=== PATIENT | male | born 1980 | race Asian ===

== ENCOUNTER 2017-11-18 11:17 | Emergency (ER) | payer MEDICAID, OTHER ==
[~2017-11-18] VITALS: Ht 175.3 cm; Wt 90.0 kg
[~2017-11-18 11:17] MED LIST: OLAN5TAB2 PO
[2017-11-18] MEDS ORDERED: LURA20TA PO (11:31)
[2017-11-18 11:40] LABS: BASOPHILS % (AUTO) 0.8 % (0.0-2.0); EOSINOPHILS % (AUTO) 4.4 % (1.0-6.0); HEMATOCRIT 49.2 % (41-53); HEMOGLOBIN 16.8 g/dL (13.5-17.5); LYMPHOCYTES # (AUTO) 1.7 K/uL (1.0-4.8); LYMPHOCYTES % (AUTO) 34.4 % (22.0-44.0); MEAN CORPUSCULAR HEMOGLOBIN 32.5 pg (26.0-34.0); MEAN CORPUSCULAR HGB CONC 34.1 G/dL (31.0-37.0); MEAN CORPUSCULAR VOLUME 95 fL (80-100); MONOCYTES # (AUTO) 0.4 K/uL (0.1-1.0); MONOCYTES % (AUTO) 8.7 % (2.0-9.0); NEUTROPHILS # (AUTO) 2.6 K/uL (1.8-7.7); NEUTROPHILS % (AUTO) 51.7 % (40.0-70.0); PLATELET COUNT (AUTO) 207 K/uL (150-450); RED BLOOD CELL COUNT(AUTO) 5.16 MIL/uL (4.50-5.90); RED CELL DISTRIBUTION WIDTH 12.5 % (11.5-14.5)
[2017-11-18 11:48] LABS: AMPHET/METH SCREEN,URINE POSITIVE (NEGATIVE); BARBITURATE SCREEN, URINE NEGATIVE (NEGATIVE); BENZODIAZEPINES SCREEN,URINE NEGATIVE (NEGATIVE); CANNABINOID SCREEN,URINE POSITIVE (NEGATIVE); COCAINE SCREEN,URINE NEGATIVE (NEGATIVE); METHADONE SCREEN, URINE NEGATIVE (NEGATIVE); OPIATE SCREEN,URINE NEGATIVE (NEGATIVE)
[2017-11-18 11:49] LABS: ANION GAP 10 mmol/L (8-16); CALCIUM, TOTAL 8.7 mg/dL (8.8-10.5); CARBON DIOXIDE 28 mmol/L (22-29); CHLORIDE 105 mmol/L (98-107); CREATININE 0.95 mg/dL (0.60-1.30); GLOMERULAR FILTR. RATE CALC > 60 mL/min (>60); GLUCOSE,RANDOM 124 mg/dL (70-110); POTASSIUM 3.9 mmol/L (3.5-5.1); SODIUM SERUM 143 mmol/L (136-145); UREA NITROGEN, BLOOD 5 mg/dL (7-18)
[2017-11-18 11:49] LABS: PHENCYCLIDINE SCREEN,URINE NEGATIVE (NEGATIVE)
[2017-11-18 11:59] LABS: ALANINE AMINOTRANSFERASE 38 U/L (12-78); ALBUMIN 3.9 g/dL (3.4-5.0); ALKALINE PHOSPHATASE 64 U/L (46-116); ASPARTATE AMINOTRANSFERASE 22 U/L (15-37); BILIRUBIN,TOTAL 0.7 mg/dL (0.1-1.0); TOTAL PROTEIN, SERUM 7.3 g/dL (6.4-8.2)
[2017-11-18 13:29] VITALS: BP 118/88
== END 2017-11-18 14:39 | disposition home or self-care (01) ==
LOC: EMS 11:19
DX: T74.31XA Adult psychological abuse, confirmed, initial encounter (principal); F20.9 Schizophrenia, unspecified; Z79.899 Other long term (current) drug therapy
CPT/HCPCS: 36415; 80053; 80307; 85025; 99285; G0480

== ENCOUNTER 2020-08-03 13:05 | Inpatient (IN) | payer MEDICAID, OTHER ==
[~2020-08-03] VITALS: Ht 177.8 cm; Wt 88.9 kg
[~2020-08-03 13:05] MED LIST changes: +LURA20TA PO
[2020-08-03 14:25] LABS: BASOPHILS % (AUTO) 0.5 % (0.0-2.0); EOSINOPHILS % (AUTO) 2.9 % (1.0-6.0); HEMATOCRIT 44.9 % (41-53); HEMOGLOBIN 15.7 g/dL (13.5-17.5); LYMPHOCYTES # (AUTO) 1.1 K/uL (1.0-4.8); LYMPHOCYTES % (AUTO) 17.4 % (22.0-44.0); MEAN CORPUSCULAR HEMOGLOBIN 33.4 pg (26.0-34.0); MEAN CORPUSCULAR HGB CONC 34.9 G/dL (31.0-37.0); MEAN CORPUSCULAR VOLUME 96 fL (80-100); MONOCYTES # (AUTO) 0.6 K/uL (0.1-1.0); MONOCYTES % (AUTO) 9.6 % (2.0-9.0); NEUTROPHILS # (AUTO) 4.5 K/uL (1.8-7.7); NEUTROPHILS % (AUTO) 69.6 % (40.0-70.0); PLATELET COUNT (AUTO) 204 K/uL (150-450); RED BLOOD CELL COUNT(AUTO) 4.69 MIL/uL (4.50-5.90)
[2020-08-03 14:33] LABS: ANION GAP 8 mmol/L (8-16); CALCIUM, TOTAL 8.5 mg/dL (8.8-10.5); CARBON DIOXIDE 28 mmol/L (22-29); CHLORIDE 106 mmol/L (98-107); CREATININE 1.17 mg/dL (0.60-1.30); GLOMERULAR FILTR. RATE CALC > 60 mL/min (>60); GLUCOSE,RANDOM 91 mg/dL (70-110); POTASSIUM 4.3 mmol/L (3.5-5.1); SODIUM SERUM 142 mmol/L (136-145); UREA NITROGEN, BLOOD 17 mg/dL (7-18)
[2020-08-03 14:38] LABS: ALANINE AMINOTRANSFERASE 38 U/L (12-78); ALBUMIN 4.2 g/dL (3.4-5.0); ALKALINE PHOSPHATASE 61 U/L (46-116); ASPARTATE AMINOTRANSFERASE 35 U/L (15-37); BILIRUBIN,TOTAL 0.7 mg/dL (0.1-1.0); TOTAL PROTEIN, SERUM 7.8 g/dL (6.4-8.2)
[2020-08-03] MEDS ORDERED: MINERAL OIL/PETROLATUM 120 GM CREAM TP ONE (16:45)
[2020-08-03 17:55] LABS: COVID AG,FIA SOURCE NASOPHARYNGEAL
[2020-08-04] MEDS ORDERED: INFLUENZA VIRUS VACCINE QVS 2020-21 (6MO+)/PF 60 MCG/0.5 ML SYRINGE IM ONE (03:30)
[2020-08-04 03:33] VITALS: BP 126/87
[2020-08-04 08:09] VITALS: BP 105/60
[2020-08-04 16:13] VITALS: BP 116/74
[2020-08-04] MEDS: LORazepam 2 MG TABLET PO PRN (17:40)
[2020-08-04] MEDS: HALOPERIDOL 5 MG TABLET PO PRN (17:40)
[2020-08-04] MEDS: ZOLPIDEM TARTRATE 10 MG TABLET PO PRN (20:42)
[2020-08-04] MEDS: OLANZapine 5 MG RAPDIS TABLET PO SCH (20:43)
[2020-08-05 06:02] VITALS: BP 136/92
[2020-08-05 08:13] VITALS: BP 130/74
[2020-08-05] MEDS: HYDROCORTISONE 1% 30 GM CREAM TP SCH ×3 (08:20→17:22)
[2020-08-05 16:15] VITALS: BP 124/77
[2020-08-05] MEDS: HALOPERIDOL 5 MG TABLET PO PRN (17:23)
[2020-08-05] MEDS: LORazepam 2 MG TABLET PO PRN (17:23)
[2020-08-05] MEDS: OLANZapine 5 MG RAPDIS TABLET PO SCH (21:31)
[2020-08-06 00:07] VITALS: BP 125/79
[2020-08-06] MEDS: LORazepam 2 MG TABLET PO PRN (00:09)
[2020-08-06] MEDS: ZOLPIDEM TARTRATE 10 MG TABLET PO PRN (00:09)
[2020-08-06] MEDS: HYDROCORTISONE 1% 30 GM CREAM TP SCH ×3 (08:56→17:00)
[2020-08-06 09:19] VITALS: BP 122/78
[2020-08-06 17:06] VITALS: BP 127/64
[2020-08-06] MEDS: OLANZapine 5 MG RAPDIS TABLET PO SCH (20:46)
[2020-08-07] MEDS: LORazepam 2 MG TABLET PO PRN ×4 (00:32→19:16)
[2020-08-07] MEDS: ZOLPIDEM TARTRATE 10 MG TABLET PO PRN ×2 (00:32→22:37)
[2020-08-07 00:46] VITALS: BP 122/61
[2020-08-07 08:06] VITALS: BP 113/66
[2020-08-07] MEDS ORDERED: IBUPROFEN 600 MG TABLET PO PRN (08:15)
[2020-08-07] MEDS: HYDROCORTISONE 1% 30 GM CREAM TP SCH ×3 (08:15→16:14)
[2020-08-07] MEDS ORDERED: MAGNESIUM HYDROXIDE SUSPENSION 30 ML UDCUP PO PRN (08:15)
[2020-08-07] MEDS ORDERED: DOCUSATE SODIUM 100 MG CAPSULE PO PRN (08:15)
[2020-08-07] MEDS ORDERED: ALBUTEROL SULFATE HFA 90 MCG/PUFF 8 GM INHALER IH PRN (08:15)
[2020-08-07] MEDS ORDERED: ACETAMINOPHEN 325 MG TABLET PO PRN (08:15)
[2020-08-07] MEDS ORDERED: BACITRACIN 28 GM OINTMENT TP PRN (08:15)
[2020-08-07] MEDS ORDERED: OMEPRAZOLE 20 MG CAPSULE PO PRN (08:15)
[2020-08-07] MEDS ORDERED: CloNIDine HCL 0.1 MG TABLET PO PRN (08:15)
[2020-08-07] MEDS ORDERED: LOPERAMIDE HCL 2 MG CAPSULE PO PRN (08:15)
[2020-08-07] MEDS ORDERED: PETROLATUM,WHITE 28 GM JELLY TP PRN (08:15)
[2020-08-07] MEDS ORDERED: ONDANSETRON HCL 4 MG TABLET PO PRN (08:15)
[2020-08-07] MEDS ORDERED: BENZOCAINE/MENTHOL LOZENGE PO PRN (08:15)
[2020-08-07] MEDS ORDERED: MAG HYDROX/AL HYDROX/SIMETH ES 30 ML SUSPENSION UDCUP PO PRN (08:15)
[2020-08-07 16:04] VITALS: BP 134/94
[2020-08-07] MEDS: OLANZapine 5 MG RAPDIS TABLET PO SCH (20:18)
[2020-08-07 22:49] LABS: COVID AG,FIA SOURCE NASOPHARYNGEAL
[2020-08-08 06:35] VITALS: BP 103/74
[2020-08-08 08:23] VITALS: BP 142/78
[2020-08-08] MEDS: HYDROCORTISONE 1% 30 GM CREAM TP SCH ×3 (09:00→16:57)
[2020-08-08 16:08] VITALS: BP 142/71
[2020-08-08] MEDS: NICOTINE 21 MG/24 HOUR PATCH TD SCH (16:28)
[2020-08-08] MEDS: LORazepam 2 MG TABLET PO PRN (16:29)
[2020-08-08] MEDS: OLANZapine 5 MG RAPDIS TABLET PO SCH (20:24)
[2020-08-08] MEDS: ZOLPIDEM TARTRATE 10 MG TABLET PO PRN (20:25)
[2020-08-09 04:50] VITALS: BP 126/86
[2020-08-09] MEDS ORDERED: OLAN5TAB40 PO (07:41)
[2020-08-09 08:15] VITALS: BP 133/80
[2020-08-09] MEDS: HYDROCORTISONE 1% 30 GM CREAM TP SCH (08:25)
[2020-08-09] MEDS: NICOTINE 21 MG/24 HOUR PATCH TD SCH (08:26)
== END 2020-08-09 11:54 | disposition home or self-care (01) | DRG 750 ==
LOC: EMS 13:05 → B3A 15:23 → B2S 08-07 18:29
PROVIDERS: ADMIT Psychiatry & Neurology Psychiatry; ATTEND Psychiatry & Neurology Psychiatry
DX: F20.0 Paranoid schizophrenia (principal); F12.90 Cannabis use, unspecified, uncomplicated; Z20.828 Contact with and (suspected) exposure to other viral communicable diseases; Z28.21 Immunization not carried out because of patient refusal; G47.00 Insomnia, unspecified; F41.9 Anxiety disorder, unspecified; K59.00 Constipation, unspecified; Z72.0 Tobacco use
CPT/HCPCS: 87426; 90686; G0480

== ENCOUNTER 2021-03-10 20:44 | Inpatient (IN) | payer MEDICAID, OTHER ==
[~2021-03-10] VITALS: Ht 180.3 cm; Wt 89.8 kg
[~2021-03-10 20:44] MED LIST changes: -LURA20TA PO; -OLAN5TAB2 PO; +OLAN5TAB94 PO
[2021-03-10 21:36] LABS: BASOPHILS % (AUTO) 0.4 % (0.0-2.0); EOSINOPHILS % (AUTO) 1.3 % (1.0-6.0); HEMATOCRIT 46.3 % (41-53); HEMOGLOBIN 15.5 g/dL (13.5-17.5); LYMPHOCYTES # (AUTO) 1.1 K/uL (1.0-4.8); LYMPHOCYTES % (AUTO) 24.6 % (22.0-44.0); MEAN CORPUSCULAR HEMOGLOBIN 32.5 pg (26.0-34.0); MEAN CORPUSCULAR HGB CONC 33.4 G/dL (31.0-37.0); MEAN CORPUSCULAR VOLUME 97 fL (80-100); MONOCYTES # (AUTO) 0.4 K/uL (0.1-1.0); MONOCYTES % (AUTO) 8.9 % (2.0-9.0); NEUTROPHILS % (AUTO) 64.8 % (40.0-70.0); PLATELET COUNT (AUTO) 226 K/uL (150-450); RED BLOOD CELL COUNT(AUTO) 4.76 MIL/uL (4.50-5.90)
[2021-03-10] MEDS ORDERED: HALOPERIDOL LACTATE 5 MG/ML VIAL IM ONE (21:45)
[2021-03-10] MEDS ORDERED: LORazepam 2 MG/ML VIAL IM ONE (21:45)
[2021-03-10] MEDS ORDERED: DiphenhydrAMINE HCL 50 MG/ML VIAL IM ONE (21:45)
[2021-03-10 21:48] LABS: ANION GAP 10 mmol/L (8-16); CALCIUM, TOTAL 9.1 mg/dL (8.8-10.5); CARBON DIOXIDE 29 mmol/L (22-29); CHLORIDE 103 mmol/L (98-107); CREATININE 1.12 mg/dL (0.60-1.30); GLOMERULAR FILTR. RATE CALC > 60 mL/min (>60); GLUCOSE,RANDOM 110 mg/dL (70-110); POTASSIUM 3.7 mmol/L (3.5-5.1); SODIUM SERUM 142 mmol/L (136-145); UREA NITROGEN, BLOOD 13 mg/dL (7-18)
[2021-03-10 21:51] LABS: ALBUMIN 4.3 g/dL (3.4-5.0)
[2021-03-10 22:05] LABS: ALANINE AMINOTRANSFERASE 55 U/L (12-78); ALKALINE PHOSPHATASE 72 U/L (46-116); ASPARTATE AMINOTRANSFERASE 37 U/L (15-37); TOTAL PROTEIN, SERUM 7.8 g/dL (6.4-8.2)
[2021-03-10] MEDS ORDERED: ZOLPIDEM TARTRATE 10 MG TABLET PO PRN (22:45)
[2021-03-10] MEDS ORDERED: HALOPERIDOL 5 MG TABLET PO PRN (22:45)
[2021-03-11 08:21] LABS: COVID AG,FIA SOURCE NASOPHARYNGEAL
[2021-03-11 09:49] LABS: CHOL/HDL RATIO 3.6 (4.2-7.3)
[2021-03-11 11:31] LABS: AMPHET/METH SCREEN,URINE POSITIVE (NEGATIVE); BARBITURATE SCREEN, URINE NEGATIVE (NEGATIVE); BENZODIAZEPINES SCREEN,URINE NEGATIVE (NEGATIVE); CANNABINOID SCREEN,URINE NEGATIVE (NEGATIVE); COCAINE SCREEN,URINE NEGATIVE (NEGATIVE); METHADONE SCREEN, URINE NEGATIVE (NEGATIVE); OPIATE SCREEN,URINE NEGATIVE (NEGATIVE); PHENCYCLIDINE SCREEN,URINE NEGATIVE (NEGATIVE)
[2021-03-11 22:16] VITALS: BP 134/89
[2021-03-11] MEDS ORDERED: BACITRACIN 28 GM OINTMENT TP PRN (22:45)
[2021-03-11] MEDS ORDERED: DOCUSATE SODIUM 100 MG CAPSULE PO PRN (22:45)
[2021-03-11] MEDS ORDERED: ALBUTEROL SULFATE HFA 90 MCG/PUFF 8 GM INHALER IH PRN (22:45)
[2021-03-11] MEDS ORDERED: PETROLATUM,WHITE 28 GM JELLY TP PRN (22:45)
[2021-03-11] MEDS ORDERED: MAGNESIUM HYDROXIDE SUSPENSION 30 ML UDCUP PO PRN (22:45)
[2021-03-11] MEDS ORDERED: ACETAMINOPHEN 325 MG TABLET PO PRN (22:45)
[2021-03-11] MEDS ORDERED: BENZOCAINE/MENTHOL LOZENGE PO PRN (22:45)
[2021-03-11] MEDS ORDERED: LOPERAMIDE HCL 2 MG CAPSULE PO PRN (22:45)
[2021-03-11] MEDS ORDERED: OMEPRAZOLE 20 MG CAPSULE PO PRN (22:45)
[2021-03-11] MEDS ORDERED: ONDANSETRON HCL 4 MG TABLET PO PRN (22:45)
[2021-03-11] MEDS ORDERED: IBUPROFEN 600 MG TABLET PO PRN (22:45)
[2021-03-11] MEDS ORDERED: MAG HYDROX/AL HYDROX/SIMETH ES 30 ML SUSPENSION UDCUP PO PRN (22:45)
[2021-03-11] MEDS ORDERED: CloNIDine HCL 0.1 MG TABLET PO PRN (22:45)
[2021-03-12 06:31] VITALS: BP 118/75
[2021-03-12 08:16] VITALS: BP 132/86
[2021-03-12] MEDS: NICOTINE 14 MG/24 HOUR PATCH TD SCH (08:57)
[2021-03-12] MEDS: LORazepam 2 MG TABLET PO PRN (16:07)
[2021-03-12 16:10] VITALS: BP 140/80
[2021-03-13 01:58] VITALS: BP 143/100
[2021-03-13] MEDS: LORazepam 2 MG TABLET PO PRN ×2 (03:40→12:25)
[2021-03-13 06:40] VITALS: BP 146/95
[2021-03-13] MEDS: NICOTINE 14 MG/24 HOUR PATCH TD SCH (08:06)
[2021-03-13 08:27] VITALS: BP 143/99
[2021-03-13 16:09] VITALS: BP 135/94
[2021-03-13] MEDS: OLANZapine 7.5 MG TABLET PO SCH (19:42)
[2021-03-14 00:32] VITALS: BP 143/97
[2021-03-14 08:30] VITALS: BP 135/80
[2021-03-14] MEDS: NICOTINE 14 MG/24 HOUR PATCH TD SCH (08:53)
[2021-03-14 16:08] VITALS: BP 126/88
[2021-03-14] MEDS: LORazepam 2 MG TABLET PO PRN (16:37)
[2021-03-14] MEDS: OLANZapine 7.5 MG TABLET PO SCH (20:20)
[2021-03-15 05:41] VITALS: BP 130/76
[2021-03-15 08:36] VITALS: BP 131/84
[2021-03-15] MEDS: NICOTINE 14 MG/24 HOUR PATCH TD SCH (09:05)
== END 2021-03-15 14:00 | disposition home or self-care (01) | DRG 750 ==
LOC: EMS 20:45 → B3A 22:31
PROVIDERS: ADMIT Psychiatry & Neurology Psychiatry; ATTEND Psychiatry & Neurology Psychiatry
DX: F20.0 Paranoid schizophrenia (principal); Z91.14 Patient's other noncompliance with medication regimen; F41.9 Anxiety disorder, unspecified; G47.00 Insomnia, unspecified; K59.00 Constipation, unspecified; Z20.822 Contact with and (suspected) exposure to COVID-19
CPT/HCPCS: 80053; 80061; 85025; 96372; 99285; G0480; J1200; J1630; J2060

== ENCOUNTER 2021-06-09 03:10 | Inpatient (IN) | payer MEDICAID, OTHER ==
[~2021-06-09] VITALS: Ht 180.3 cm; Wt 90.9 kg
[2021-06-09 04:07] LABS: BASOPHILS % (AUTO) 0.7 % (0.0-2.0); EOSINOPHILS % (AUTO) 3.4 % (1.0-6.0); HEMATOCRIT 45.3 % (41-53); HEMOGLOBIN 15.5 g/dL (13.5-17.5); LYMPHOCYTES # (AUTO) 1.6 K/uL (1.0-4.8); LYMPHOCYTES % (AUTO) 24.3 % (22.0-44.0); MEAN CORPUSCULAR HEMOGLOBIN 32.7 pg (26.0-34.0); MEAN CORPUSCULAR HGB CONC 34.2 G/dL (31.0-37.0); MEAN CORPUSCULAR VOLUME 96 fL (80-100); MONOCYTES # (AUTO) 0.7 K/uL (0.1-1.0); MONOCYTES % (AUTO) 10.5 % (2.0-9.0); NEUTROPHILS # (AUTO) 4.1 K/uL (1.8-7.7); NEUTROPHILS % (AUTO) 61.1 % (40.0-70.0); PLATELET COUNT (AUTO) 213 K/uL (150-450); RED BLOOD CELL COUNT(AUTO) 4.73 MIL/uL (4.50-5.90); RED CELL DISTRIBUTION WIDTH 13.1 % (11.5-14.5)
[2021-06-09 04:16] LABS: ANION GAP 8 mmol/L (8-16); CALCIUM, TOTAL 8.7 mg/dL (8.8-10.5); CARBON DIOXIDE 29 mmol/L (22-29); CHLORIDE 104 mmol/L (98-107); CREATININE 1.26 mg/dL (0.60-1.30); GLOMERULAR FILTR. RATE CALC > 60 mL/min (>60); GLUCOSE,RANDOM 144 mg/dL (70-110); POTASSIUM 3.2 mmol/L (3.5-5.1); SODIUM SERUM 141 mmol/L (136-145); UREA NITROGEN, BLOOD 30 mg/dL (7-18)
[2021-06-09 04:23] LABS: ALANINE AMINOTRANSFERASE 42 U/L (12-78); ALBUMIN 4.2 g/dL (3.4-5.0); ALKALINE PHOSPHATASE 74 U/L (46-116); ASPARTATE AMINOTRANSFERASE 48 U/L (15-37); BILIRUBIN,TOTAL 0.7 mg/dL (0.1-1.0); TOTAL PROTEIN, SERUM 7.5 g/dL (6.4-8.2)
[2021-06-09 04:25] LABS: SALICYLATE < 2.8 mg/dL (2.8-20.0)
[2021-06-09 04:34] LABS: ACETAMINOPHEN < 2 mcg/mL (10-30)
[2021-06-09] MEDS ORDERED: POTASSIUM CHLORIDE 20 MEQ ER TABLET PO ONE (04:45)
[2021-06-09 04:50] LABS: COVID AG,FIA SOURCE NASOPHARYNGEAL
[2021-06-09 13:56] LABS: APPEARANCE,URINE CLEAR (CLEAR); BILIRUBIN,URINE NEGATIVE (NEGATIVE); GLUCOSE, URINE (UA) NEGATIVE (NEGATIVE); KETONES,URINE NEGATIVE (NEGATIVE); LEUKOCYTE ESTERASE ,URINE NEGATIVE (NEGATIVE); NITRATE,URINE NEGATIVE (NEGATIVE); OCCULT BLOOD,URINE NEGATIVE (NEGATIVE); PH,URINE 5.5 (5.0-8.0); PROTEIN,URINE NEGATIVE (NEGATIVE); UROBILINOGEN,URINE 0.2 mg/dL (<=1.0)
[2021-06-09 14:03] LABS: AMPHET/METH SCREEN,URINE POSITIVE (NEGATIVE); BARBITURATE SCREEN, URINE NEGATIVE (NEGATIVE); BENZODIAZEPINES SCREEN,URINE NEGATIVE (NEGATIVE); CANNABINOID SCREEN,URINE NEGATIVE (NEGATIVE); COCAINE SCREEN,URINE NEGATIVE (NEGATIVE); METHADONE SCREEN, URINE NEGATIVE (NEGATIVE); OPIATE SCREEN,URINE NEGATIVE (NEGATIVE); PHENCYCLIDINE SCREEN,URINE NEGATIVE (NEGATIVE)
[2021-06-09 21:28] VITALS: BP 132/99
[2021-06-10 01:21] LABS: CHOL/HDL RATIO 3.5 (4.2-7.3); CHOLESTEROL 184 mg/dL (131-200); HDL CHOLESTEROL 53 mg/dL (40-60); LDL CHOL (CALC.) 112 mg/dL (0-130); TRIGLYCERIDES 94 mg/dL (15-150)
[2021-06-10] MEDS: OLANZapine 5 MG TABLET PO SCH (09:55)
[2021-06-10] MEDS ORDERED: CloNIDine HCL 0.1 MG TABLET PO PRN (11:15)
[2021-06-10] MEDS ORDERED: MAGNESIUM HYDROXIDE SUSPENSION 30 ML UDCUP PO PRN (11:15)
[2021-06-10] MEDS ORDERED: PETROLATUM,WHITE 28 GM JELLY TP PRN (11:15)
[2021-06-10] MEDS ORDERED: IBUPROFEN 400 MG TABLET PO PRN (11:15)
[2021-06-10] MEDS ORDERED: MAG HYDROX/AL HYDROX/SIMETH ES 30 ML SUSPENSION UDCUP PO PRN (11:15)
[2021-06-10] MEDS ORDERED: LOPERAMIDE HCL 2 MG CAPSULE PO PRN (11:15)
[2021-06-10] MEDS ORDERED: ACETAMINOPHEN 325 MG TABLET PO PRN (11:15)
[2021-06-10] MEDS ORDERED: ALBUTEROL SULFATE HFA 90 MCG/PUFF 8 GM INHALER IH PRN (11:15)
[2021-06-10] MEDS ORDERED: NICOTINE 14 MG/24 HOUR PATCH TD PRN (11:15)
[2021-06-10] MEDS ORDERED: ONDANSETRON HCL 4 MG TABLET PO PRN (11:15)
[2021-06-10] MEDS ORDERED: GuaiFENesin/D-METHORPHAN [SUGAR-FREE] 200-20MG/10 ML SYRUP UDCUP PO PRN (11:15)
[2021-06-10] MEDS ORDERED: DOCUSATE SODIUM 100 MG CAPSULE PO PRN (11:15)
[2021-06-10 17:21] VITALS: BP 145/75
[2021-06-10] MEDS: OLANZapine 7.5 MG TABLET PO SCH (20:06)
[2021-06-10] MEDS: ZOLPIDEM TARTRATE 10 MG TABLET PO PRN (20:08)
[2021-06-11] MEDS: OLANZapine 5 MG TABLET PO SCH (09:14)
[2021-06-11] MEDS: LORazepam 2 MG TABLET PO PRN ×2 (09:14→16:29)
[2021-06-11 09:34] VITALS: BP 144/99
[2021-06-11] MEDS: HALOPERIDOL 5 MG TABLET PO PRN (11:56)
[2021-06-11 16:26] VITALS: BP 126/77
[2021-06-11] MEDS: OLANZapine 7.5 MG TABLET PO SCH (21:00)
[2021-06-12 08:00] VITALS: BP 147/100
[2021-06-12] MEDS: OLANZapine 5 MG TABLET PO SCH (09:36)
[2021-06-12] MEDS: LORazepam 2 MG TABLET PO PRN (10:44)
[2021-06-12] MEDS: HALOPERIDOL 5 MG TABLET PO PRN (10:44)
[2021-06-12] MEDS: OLANZapine 7.5 MG TABLET PO SCH (21:55)
[2021-06-13 08:28] VITALS: BP 154/110
[2021-06-13] MEDS: OLANZapine 5 MG TABLET PO SCH (09:13)
[2021-06-13] MEDS: LORazepam 2 MG TABLET PO PRN (09:13)
[2021-06-13] MEDS: OLANZapine 7.5 MG TABLET PO SCH (20:31)
[2021-06-14] MEDS: HALOPERIDOL 5 MG TABLET PO PRN ×2 (01:14→16:02)
[2021-06-14] MEDS: ZOLPIDEM TARTRATE 10 MG TABLET PO PRN ×2 (01:14→20:30)
[2021-06-14] MEDS: LORazepam 2 MG TABLET PO PRN ×2 (01:14→08:25)
[2021-06-14] MEDS: OLANZapine 5 MG TABLET PO SCH (08:25)
[2021-06-14] MEDS: OLANZapine 7.5 MG TABLET PO SCH (20:30)
[2021-06-15 00:20] VITALS: BP 160/110
[2021-06-15] MEDS: HALOPERIDOL 5 MG TABLET PO PRN ×2 (00:25→20:12)
[2021-06-15] MEDS: LORazepam 2 MG TABLET PO PRN ×2 (00:29→10:06)
[2021-06-15] MEDS: OLANZapine 5 MG TABLET PO SCH (10:06)
[2021-06-15 16:55] VITALS: BP 133/78
[2021-06-15] MEDS: OLANZapine 7.5 MG TABLET PO SCH (20:11)
[2021-06-15] MEDS: ZOLPIDEM TARTRATE 10 MG TABLET PO PRN (22:30)
[2021-06-16 09:25] VITALS: BP 143/100
[2021-06-16] MEDS: OLANZapine 5 MG TABLET PO SCH (10:23)
[2021-06-16] MEDS: LORazepam 2 MG TABLET PO PRN (10:24)
[2021-06-16 16:47] VITALS: BP 132/76
[2021-06-16] MEDS: OLANZapine 7.5 MG TABLET PO SCH (20:47)
[2021-06-16] MEDS: ZOLPIDEM TARTRATE 10 MG TABLET PO PRN (20:47)
[2021-06-16 21:42] LABS: COVID AG,FIA SOURCE NASOPHARYNGEAL
[2021-06-17 09:30] VITALS: BP 134/86
[2021-06-17] MEDS: OLANZapine 5 MG TABLET PO SCH (10:07)
[2021-06-17] MEDS: HALOPERIDOL 5 MG TABLET PO PRN (16:03)
[2021-06-17 16:58] VITALS: BP 133/82
[2021-06-17] MEDS: ZOLPIDEM TARTRATE 10 MG TABLET PO PRN (20:05)
[2021-06-17] MEDS: OLANZapine 7.5 MG TABLET PO SCH (20:07)
[2021-06-17] MEDS: LORazepam 2 MG TABLET PO PRN (22:02)
[2021-06-18] MEDS: LORazepam 2 MG TABLET PO PRN ×2 (03:03→08:13)
[2021-06-18] MEDS: OLANZapine 5 MG TABLET PO SCH (08:13)
[2021-06-18] MEDS: HALOPERIDOL 5 MG TABLET PO PRN (08:13)
[2021-06-18 08:32] VITALS: BP 133/102
[2021-06-18] MEDS ORDERED: OLAN5TAB30 PO (13:04)
== END 2021-06-18 13:20 | disposition home or self-care (01) | DRG 750 ==
LOC: EMS 03:15 → 3EC 19:33
DX: F20.0 Paranoid schizophrenia (principal); R45.851 Suicidal ideations; R45.850 Homicidal ideations; F79 Unspecified intellectual disabilities; E87.6 Hypokalemia; R73.9 Hyperglycemia, unspecified; F41.9 Anxiety disorder, unspecified; Z20.822 Contact with and (suspected) exposure to COVID-19; F15.10 Other stimulant abuse, uncomplicated; Z59.00 Homelessness unspecified; Z71.51 Drug abuse counseling and surveillance of drug abuser
CPT/HCPCS: 80053; 80061; 81003; 85025; 99285; G0480; G0481

== ENCOUNTER 2023-03-08 20:31 | Inpatient (IN) | payer MEDICAID, OTHER ==
[~2023-03-08] VITALS: Ht 177.8 cm; Wt 105.7 kg
[~2023-03-08 20:31] MED LIST changes: +OLAN5TAB30 PO
[2023-03-08 21:24] LABS: BASOPHILS % (AUTO) 0.7 % (0.0-2.0); EOSINOPHILS % (AUTO) 1.2 % (1.0-6.0); HEMATOCRIT 49.5 % (41-53); HEMOGLOBIN 17.1 g/dL (13.5-17.5); LYMPHOCYTES # (AUTO) 1.2 K/uL (1.0-4.8); MEAN CORPUSCULAR HEMOGLOBIN 33.4 pg (26.0-34.0); MEAN CORPUSCULAR HGB CONC 34.6 G/dL (31.0-37.0); MEAN CORPUSCULAR VOLUME 97 fL (80-100); MONOCYTES # (AUTO) 0.7 K/uL (0.1-1.0); MONOCYTES % (AUTO) 9.6 % (2.0-9.0); NEUTROPHILS # (AUTO) 5.3 K/uL (1.8-7.7); NEUTROPHILS % (AUTO) 72.5 % (40.0-70.0); PLATELET COUNT (AUTO) 259 K/uL (150-450); RED BLOOD CELL COUNT(AUTO) 5.12 MIL/uL (4.50-5.90); RED CELL DISTRIBUTION WIDTH 13.7 % (11.5-14.5); WHITE BLOOD COUNT (AUTO) 7.3 K/uL (4.5-11.0)
[2023-03-08 21:32] LABS: ANION GAP 14 mmol/L (8-16); CALCIUM, TOTAL 9.1 mg/dL (8.8-10.5); CARBON DIOXIDE 25 mmol/L (22-29); CHLORIDE 100 mmol/L (98-107); CREATININE 2.08 mg/dL (0.60-1.30); GLOMERULAR FILTR. RATE CALC 36 mL/min (>60); GLUCOSE,RANDOM 143 mg/dL (70-110); POTASSIUM 3.3 mmol/L (3.5-5.1); SODIUM SERUM 139 mmol/L (136-145); UREA NITROGEN, BLOOD 34 mg/dL (7-18)
[2023-03-08 21:40] LABS: ALANINE AMINOTRANSFERASE 60 U/L (12-78); ALBUMIN 4.5 g/dL (3.4-5.0); ALKALINE PHOSPHATASE 92 U/L (46-116); ASPARTATE AMINOTRANSFERASE 65 U/L (15-37); BILIRUBIN,TOTAL 0.7 mg/dL (0.1-1.0); TOTAL PROTEIN, SERUM 8.5 g/dL (6.4-8.2)
[2023-03-08 21:45] LABS: ALCOHOL, BLOOD (SERUM) < 3 mg/dL (0-10)
[2023-03-08] MEDS ORDERED: POTASSIUM CHLORIDE 20 MEQ ER TABLET PO ONE (22:30)
[2023-03-08 22:37] LABS: COVID AG,FIA SOURCE NASOPHARYNGEAL
[2023-03-08 22:57] LABS: SARS-COV2 (COVID) ANTIGEN,FIA Negative (Negative)
[2023-03-09 01:46] VITALS: BP 128/84; PULSE 96; RESP 18; TEMP 98.3; O2SAT 100
[2023-03-09] MEDS: ZOLPIDEM TARTRATE 10 MG TABLET PO PRN ×2 (02:34→20:21)
[2023-03-09] MEDS ORDERED: PNEUMOCOCCAL VACCINE POLYVALENT 0.5 ML VIAL [PPSV23] IM. ONE (05:00)
[2023-03-09] MEDS: HALOPERIDOL 5 MG TABLET PO PRN ×2 (07:36→16:44)
[2023-03-09] MEDS: LORazepam 2 MG TABLET PO PRN ×2 (07:36→16:44)
[2023-03-09 08:31] VITALS: BP 104/62; PULSE 66; RESP 17; TEMP 97.3; O2SAT 99
[2023-03-09 08:52] VITALS: TEMP 97.3
[2023-03-09] MEDS ORDERED: DOCUSATE SODIUM 100 MG CAPSULE PO PRN (11:00)
[2023-03-09] MEDS ORDERED: LOPERAMIDE HCL 2 MG CAPSULE PO PRN (11:00)
[2023-03-09] MEDS ORDERED: ALBUTEROL SULFATE HFA 90 MCG/PUFF 8 GM INHALER IH PRN (11:00)
[2023-03-09] MEDS ORDERED: MAG HYDROX/AL HYDROX/SIMETH ES 30 ML SUSPENSION UDCUP PO PRN (11:00)
[2023-03-09] MEDS ORDERED: MAGNESIUM HYDROXIDE SUSPENSION 30 ML UDCUP PO PRN (11:00)
[2023-03-09] MEDS ORDERED: ONDANSETRON HCL 4 MG TABLET PO PRN (11:00)
[2023-03-09] MEDS ORDERED: CloNIDine HCL 0.1 MG TABLET PO PRN (11:00)
[2023-03-09] MEDS: OLANZapine 7.5 MG TABLET PO SCH (20:01)
[2023-03-09 20:31] VITALS: BP 108/64; PULSE 70; RESP 18; TEMP 97.6; O2SAT 98
[2023-03-10] MEDS: OLANZapine 5 MG TABLET PO SCH (08:26)
[2023-03-10 08:46] VITALS: RESP 18
[2023-03-10] MEDS: OLANZapine 7.5 MG TABLET PO SCH (20:15)
[2023-03-10 20:31] VITALS: BP 114/62; PULSE 66; RESP 18; TEMP 97.8; O2SAT 96
[2023-03-10] MEDS: ZOLPIDEM TARTRATE 10 MG TABLET PO PRN (21:07)
[2023-03-11] MEDS: OLANZapine 5 MG TABLET PO SCH (08:09)
[2023-03-11 08:27] LABS: HEMOGLOBIN A1C 5.8 % (3.8-5.6)
[2023-03-11 08:34] VITALS: BP 129/77; PULSE 99; RESP 19; TEMP 98.1; O2SAT 99
[2023-03-11 08:43] LABS: ALANINE AMINOTRANSFERASE 57 U/L (12-78); ALBUMIN 3.4 g/dL (3.4-5.0); ALKALINE PHOSPHATASE 94 U/L (46-116); ANION GAP 8 mmol/L (8-16); ASPARTATE AMINOTRANSFERASE 25 U/L (15-37); BILIRUBIN,TOTAL 0.3 mg/dL (0.1-1.0); CALCIUM, TOTAL 8.9 mg/dL (8.8-10.5); CARBON DIOXIDE 26 mmol/L (22-29); CHLORIDE 106 mmol/L (98-107); CHOL/HDL RATIO 4.8 (4.2-7.3); CHOLESTEROL 207 mg/dL (131-200); CREATININE 0.93 mg/dL (0.60-1.30); GLOMERULAR FILTR. RATE CALC > 60 mL/min (>60); GLUCOSE,RANDOM 101 mg/dL (70-110); HDL CHOLESTEROL 43 mg/dL (40-60); LDL CHOL (CALC.) 108 mg/dL (0-130); POTASSIUM 3.9 mmol/L (3.5-5.1); SODIUM SERUM 140 mmol/L (136-145); THYROID STIMULATING HORMONE 3.18 uIU/mL (0.36-3.74); TRIGLYCERIDES 281 mg/dL (15-150); UREA NITROGEN, BLOOD 12 mg/dL (7-18)
[2023-03-11] MEDS: LORazepam 2 MG TABLET PO PRN ×2 (16:57→20:58)
[2023-03-11] MEDS: HALOPERIDOL 5 MG TABLET PO PRN (16:57)
[2023-03-11 20:11] VITALS: BP 130/85; PULSE 79; RESP 18; TEMP 97.6; O2SAT 96
[2023-03-11] MEDS: OLANZapine 7.5 MG TABLET PO SCH (20:39)
[2023-03-11] MEDS: ZOLPIDEM TARTRATE 10 MG TABLET PO PRN (20:58)
[2023-03-12 09:05] VITALS: BP 118/60; PULSE 96; RESP 17; TEMP 97.6; O2SAT 98
[2023-03-12] MEDS: LORazepam 2 MG TABLET PO PRN ×3 (09:36→20:33)
[2023-03-12] MEDS: OLANZapine 5 MG TABLET PO SCH (09:36)
[2023-03-12] MEDS: HALOPERIDOL 5 MG TABLET PO PRN ×2 (09:50→15:45)
[2023-03-12 20:22] VITALS: BP 123/72; PULSE 82; RESP 20; TEMP 98.7; O2SAT 96
[2023-03-12] MEDS: OLANZapine 7.5 MG TABLET PO SCH (20:33)
[2023-03-12] MEDS: ZOLPIDEM TARTRATE 10 MG TABLET PO PRN (20:33)
[2023-03-13] MEDS: OLANZapine 5 MG TABLET PO SCH (08:14)
[2023-03-13 08:25] VITALS: BP 126/85; PULSE 67; RESP 18; TEMP 98.2; O2SAT 100
[2023-03-13 20:15] VITALS: BP 120/82; PULSE 68; RESP 18; TEMP 98.2; O2SAT 97
[2023-03-13] MEDS: ZOLPIDEM TARTRATE 10 MG TABLET PO PRN (20:53)
[2023-03-13] MEDS: OLANZapine 7.5 MG TABLET PO SCH (20:53)
[2023-03-13] MEDS: LORazepam 2 MG TABLET PO PRN (20:54)
[2023-03-13] MEDS: HALOPERIDOL 5 MG TABLET PO PRN (22:09)
[2023-03-14 08:25] VITALS: BP 155/87; PULSE 77; RESP 18; TEMP 98.4; O2SAT 98
[2023-03-14] MEDS: OLANZapine 5 MG TABLET PO SCH (08:33)
[2023-03-14] MEDS: LORazepam 2 MG TABLET PO PRN (16:41)
[2023-03-14] MEDS: HALOPERIDOL 5 MG TABLET PO PRN (16:41)
[2023-03-14] MEDS: OLANZapine 7.5 MG TABLET PO SCH (20:14)
[2023-03-14 20:15] VITALS: BP 148/82; PULSE 70; RESP 18; TEMP 98.2; O2SAT 98
[2023-03-15] MEDS: ZOLPIDEM TARTRATE 10 MG TABLET PO PRN ×2 (00:35→20:18)
[2023-03-15 08:08] VITALS: BP 126/60; PULSE 88; RESP 17; TEMP 98; O2SAT 96
[2023-03-15 09:00] VITALS: BP 126/60; PULSE 88; RESP 18; TEMP 98; O2SAT 100
[2023-03-15] MEDS: OMEGA-3/DHA/EPA/FISH OIL 1,000 MG CAPSULE PO SCH (09:00)
[2023-03-15] MEDS: OLANZapine 5 MG TABLET PO SCH (09:00)
[2023-03-15] MEDS: LORazepam 2 MG TABLET PO PRN (17:58)
[2023-03-15] MEDS: HALOPERIDOL 5 MG TABLET PO PRN (17:58)
[2023-03-15] MEDS: OLANZapine 7.5 MG TABLET PO SCH (20:18)
[2023-03-15 20:31] VITALS: BP 142/83; PULSE 90; RESP 17; TEMP 98.3; O2SAT 98
[2023-03-16] MEDS: OLANZapine 5 MG TABLET PO SCH (08:14)
[2023-03-16] MEDS: OMEGA-3/DHA/EPA/FISH OIL 1,000 MG CAPSULE PO SCH (08:15)
[2023-03-16 09:18] VITALS: BP 139/79; PULSE 80; RESP 20; TEMP 96.9; O2SAT 99
[2023-03-16 20:40] VITALS: BP 134/78; PULSE 90; RESP 19; TEMP 98.3; O2SAT 97
[2023-03-16] MEDS: OLANZapine 7.5 MG TABLET PO SCH (22:21)
[2023-03-16] MEDS: ZOLPIDEM TARTRATE 10 MG TABLET PO PRN (23:00)
[2023-03-16] MEDS: LORazepam 2 MG TABLET PO PRN (23:00)
[2023-03-17] MEDS: OLANZapine 5 MG TABLET PO SCH (08:08)
[2023-03-17] MEDS: OMEGA-3/DHA/EPA/FISH OIL 1,000 MG CAPSULE PO SCH (08:08)
[2023-03-17 08:27] VITALS: RESP 18
[2023-03-17] MEDS: NICOTINE 14 MG/24 HOUR PATCH TD PRN (19:30)
[2023-03-17] MEDS: LORazepam 2 MG TABLET PO PRN (20:06)
[2023-03-17] MEDS: OLANZapine 7.5 MG TABLET PO SCH (20:06)
[2023-03-17 20:20] VITALS: BP 118/64; PULSE 70; RESP 19; TEMP 98.2; O2SAT 98
[2023-03-17] MEDS: ZOLPIDEM TARTRATE 10 MG TABLET PO PRN (23:36)
[2023-03-18] MEDS: OLANZapine 5 MG TABLET PO SCH (08:02)
[2023-03-18] MEDS: OMEGA-3/DHA/EPA/FISH OIL 1,000 MG CAPSULE PO SCH (08:02)
[2023-03-18 08:51] VITALS: BP 128/77; PULSE 75; RESP 18; TEMP 99.2; O2SAT 96
[2023-03-18] MEDS: LORazepam 2 MG TABLET PO PRN ×2 (16:50→20:57)
[2023-03-18] MEDS: HALOPERIDOL 5 MG TABLET PO PRN (16:50)
[2023-03-18] MEDS: NICOTINE 14 MG/24 HOUR PATCH TD PRN (18:33)
[2023-03-18 20:16] VITALS: BP 130/70; PULSE 70; RESP 20; TEMP 98.6; O2SAT 98
[2023-03-18] MEDS: OLANZapine 7.5 MG TABLET PO SCH (20:57)
[2023-03-18] MEDS: ZOLPIDEM TARTRATE 10 MG TABLET PO PRN (20:57)
[2023-03-19] MEDS: OMEGA-3/DHA/EPA/FISH OIL 1,000 MG CAPSULE PO SCH (08:39)
[2023-03-19] MEDS: OLANZapine 5 MG TABLET PO SCH (08:39)
[2023-03-19 08:40] VITALS: BP 148/92; PULSE 81; RESP 18; TEMP 98.3; O2SAT 98
[2023-03-19] MEDS: HALOPERIDOL 5 MG TABLET PO PRN (17:06)
[2023-03-19] MEDS: LORazepam 2 MG TABLET PO PRN ×2 (17:06→21:30)
[2023-03-19 20:19] VITALS: BP 138/86; PULSE 98; RESP 19; TEMP 98.4; O2SAT 98
[2023-03-19] MEDS: ZOLPIDEM TARTRATE 10 MG TABLET PO PRN (20:35)
[2023-03-19] MEDS: OLANZapine 7.5 MG TABLET PO SCH (20:35)
[2023-03-19] MEDS: NICOTINE 14 MG/24 HOUR PATCH TD PRN (21:30)
[2023-03-20] MEDS: OLANZapine 5 MG TABLET PO SCH (08:28)
[2023-03-20] MEDS: OMEGA-3/DHA/EPA/FISH OIL 1,000 MG CAPSULE PO SCH (08:28)
[2023-03-20 08:40] VITALS: BP 116/65; PULSE 76; RESP 18; TEMP 97.6; O2SAT 96
[2023-03-20] MEDS: LORazepam 2 MG TABLET PO PRN ×3 (12:50→21:08)
[2023-03-20] MEDS: HALOPERIDOL 5 MG TABLET PO PRN (17:07)
[2023-03-20 20:18] VITALS: BP 132/72; PULSE 80; RESP 20; TEMP 98.4; O2SAT 98
[2023-03-20] MEDS: OLANZapine 7.5 MG TABLET PO SCH (20:25)
[2023-03-20] MEDS: ZOLPIDEM TARTRATE 10 MG TABLET PO PRN (20:25)
[2023-03-21] MEDS: LORazepam 2 MG TABLET PO PRN ×2 (01:17→17:27)
[2023-03-21] MEDS: HALOPERIDOL 5 MG TABLET PO PRN ×2 (01:17→17:27)
[2023-03-21] MEDS: OLANZapine 5 MG TABLET PO SCH (08:26)
[2023-03-21] MEDS: OMEGA-3/DHA/EPA/FISH OIL 1,000 MG CAPSULE PO SCH (08:26)
[2023-03-21 13:45] VITALS: BP 123/85; PULSE 104; RESP 18; TEMP 97.6; O2SAT 94
[2023-03-21] MEDS: ZOLPIDEM TARTRATE 10 MG TABLET PO PRN (20:16)
[2023-03-21] MEDS: OLANZapine 7.5 MG TABLET PO SCH (20:16)
[2023-03-21 20:22] VITALS: BP 117/72; PULSE 65; RESP 18; TEMP 97.9; O2SAT 97
[2023-03-22] MEDS: ACETAMINOPHEN 325 MG TABLET PO PRN (02:35)
[2023-03-22] MEDS: OLANZapine 5 MG TABLET PO SCH (08:01)
[2023-03-22] MEDS: OMEGA-3/DHA/EPA/FISH OIL 1,000 MG CAPSULE PO SCH (08:01)
[2023-03-22 08:22] VITALS: BP 126/79; PULSE 87; RESP 17; TEMP 97.6; O2SAT 97
[2023-03-22] MEDS: ZOLPIDEM TARTRATE 10 MG TABLET PO PRN (20:14)
[2023-03-22] MEDS: OLANZapine 7.5 MG TABLET PO SCH (20:14)
[2023-03-22 21:38] VITALS: BP 147/93; PULSE 81; RESP 16; TEMP 97.4; O2SAT 93
[2023-03-23] MEDS: HALOPERIDOL 5 MG TABLET PO PRN ×2 (00:16→17:10)
[2023-03-23] MEDS: LORazepam 2 MG TABLET PO PRN ×2 (00:16→17:10)
[2023-03-23 08:11] VITALS: BP 130/81; PULSE 78; RESP 17; TEMP 97.7; O2SAT 96
[2023-03-23] MEDS: OLANZapine 5 MG TABLET PO SCH (08:21)
[2023-03-23] MEDS: OMEGA-3/DHA/EPA/FISH OIL 1,000 MG CAPSULE PO SCH (08:21)
[2023-03-23] MEDS: NICOTINE 14 MG/24 HOUR PATCH TD PRN (18:44)
[2023-03-23] MEDS: OLANZapine 7.5 MG TABLET PO SCH (20:12)
[2023-03-23 20:40] VITALS: BP 126/78; PULSE 72; RESP 20; TEMP 97.6; O2SAT 99
[2023-03-23] MEDS: ZOLPIDEM TARTRATE 10 MG TABLET PO PRN (23:55)
[2023-03-24] MEDS: OMEGA-3/DHA/EPA/FISH OIL 1,000 MG CAPSULE PO SCH (08:06)
[2023-03-24] MEDS: OLANZapine 5 MG TABLET PO SCH (08:06)
[2023-03-24 08:16] VITALS: BP 147/94; PULSE 93; RESP 18; TEMP 98; O2SAT 96
[2023-03-24] MEDS: NICOTINE 14 MG/24 HOUR PATCH TD PRN (13:06)
[2023-03-24 20:17] VITALS: BP 137/82; PULSE 108; RESP 20; TEMP 98.2; O2SAT 98
[2023-03-24] MEDS: OLANZapine 7.5 MG TABLET PO SCH (20:30)
[2023-03-24] MEDS: LORazepam 2 MG TABLET PO PRN (20:30)
[2023-03-24] MEDS: ZOLPIDEM TARTRATE 10 MG TABLET PO PRN (20:30)
[2023-03-25] MEDS: LORazepam 2 MG TABLET PO PRN ×2 (03:47→17:02)
[2023-03-25] MEDS: HALOPERIDOL 5 MG TABLET PO PRN ×2 (03:47→17:02)
[2023-03-25] MEDS: OMEGA-3/DHA/EPA/FISH OIL 1,000 MG CAPSULE PO SCH (08:21)
[2023-03-25] MEDS: OLANZapine 5 MG TABLET PO SCH (08:21)
[2023-03-25 08:38] VITALS: BP 147/98; PULSE 82; RESP 18; TEMP 97.8; O2SAT 98
[2023-03-25] MEDS: OLANZapine 7.5 MG TABLET PO SCH (20:08)
[2023-03-25] MEDS: ZOLPIDEM TARTRATE 10 MG TABLET PO PRN (20:09)
[2023-03-25 20:18] VITALS: BP 116/74; PULSE 110; RESP 20; TEMP 97.6; O2SAT 98
[2023-03-25 20:20] VITALS: RESP 20
[2023-03-25] MEDS: IBUPROFEN 400 MG TABLET PO PRN (20:20)
[2023-03-25 21:20] VITALS: RESP 18
[2023-03-26] MEDS: HALOPERIDOL 5 MG TABLET PO PRN ×2 (02:15→08:09)
[2023-03-26] MEDS: LORazepam 2 MG TABLET PO PRN ×2 (02:15→08:09)
[2023-03-26] MEDS: OMEGA-3/DHA/EPA/FISH OIL 1,000 MG CAPSULE PO SCH (08:09)
[2023-03-26] MEDS: OLANZapine 5 MG TABLET PO SCH (08:09)
[2023-03-26 08:40] VITALS: BP 137/64; PULSE 80; RESP 18; TEMP 97.9; O2SAT 95
[2023-03-26] MEDS: OLANZapine 7.5 MG TABLET PO SCH (20:34)
[2023-03-26 21:38] VITALS: BP 138/82; PULSE 75; RESP 18; TEMP 98; O2SAT 98
[2023-03-26] MEDS: ZOLPIDEM TARTRATE 10 MG TABLET PO PRN (22:20)
[2023-03-27] MEDS: LORazepam 2 MG TABLET PO PRN (00:57)
[2023-03-27 08:02] VITALS: BP 132/87; PULSE 77; RESP 18; TEMP 98.3; O2SAT 97
[2023-03-27] MEDS: OMEGA-3/DHA/EPA/FISH OIL 1,000 MG CAPSULE PO SCH (08:10)
[2023-03-27] MEDS: OLANZapine 5 MG TABLET PO SCH (08:10)
[2023-03-27 11:30] VITALS: BP 133/87; PULSE 84; RESP 17; TEMP 98; O2SAT 97
[2023-03-27 15:06] VITALS: BP 130/84; PULSE 78; RESP 18; TEMP 97.6; O2SAT 97
[2023-03-27] MEDS: GuaiFENesin/D-METHORPHAN [SUGAR-FREE] 200-20MG/10 ML SYRUP UDCUP PO PRN (15:07)
[2023-03-27] MEDS: OLANZapine 7.5 MG TABLET PO SCH (20:14)
[2023-03-27] MEDS: ACETAMINOPHEN 325 MG TABLET PO PRN (21:19)
[2023-03-27 21:21] VITALS: BP 125/89; PULSE 87; RESP 18; TEMP 97.8; O2SAT 99
[2023-03-27] MEDS: IBUPROFEN 400 MG TABLET PO PRN (22:26)
[2023-03-28] MEDS: HALOPERIDOL 5 MG TABLET PO PRN (00:33)
[2023-03-28 08:01] VITALS: BP 115/63; PULSE 92; RESP 17; TEMP 97.9; O2SAT 97
[2023-03-28] MEDS: OMEGA-3/DHA/EPA/FISH OIL 1,000 MG CAPSULE PO SCH (08:08)
[2023-03-28] MEDS: OLANZapine 5 MG TABLET PO SCH (08:08)
[2023-03-28] MEDS: IBUPROFEN 400 MG TABLET PO PRN ×2 (08:23→22:13)
[2023-03-28] MEDS: OLANZapine 7.5 MG TABLET PO SCH (20:08)
[2023-03-28 20:12] VITALS: BP 122/76; PULSE 76; RESP 18; TEMP 97.8; O2SAT 97
[2023-03-28 22:13] VITALS: RESP 18
[2023-03-28] MEDS: FLUTICASONE PROPIONATE 50 MCG/SPRAY 16 GM NASAL SPRAY NASAL PRN (22:13)
[2023-03-28 23:10] VITALS: RESP 18
[2023-03-29] VITALS (9 sets, daily range): BP systolic 115–128; BP diastolic 81–87; PULSE 84–92; RESP 17–20; TEMP 97.7–98.4; O2SAT 92–95
[2023-03-29] MEDS: ACETAMINOPHEN 325 MG TABLET PO PRN (02:59)
[2023-03-29] MEDS: IBUPROFEN 400 MG TABLET PO PRN ×3 (04:39→23:05)
[2023-03-29] MEDS: OMEGA-3/DHA/EPA/FISH OIL 1,000 MG CAPSULE PO SCH (08:05)
[2023-03-29] MEDS: OLANZapine 5 MG TABLET PO SCH (08:05)
[2023-03-29] MEDS: OLANZapine 7.5 MG TABLET PO SCH (20:13)
[2023-03-29] MEDS: FLUTICASONE PROPIONATE 50 MCG/SPRAY 16 GM NASAL SPRAY NASAL PRN (20:24)
[2023-03-30] MEDS: HALOPERIDOL 5 MG TABLET PO PRN (00:30)
[2023-03-30] MEDS: ACETAMINOPHEN 325 MG TABLET PO PRN (00:31)
[2023-03-30 08:47] VITALS: BP 139/86; PULSE 78; RESP 18; TEMP 97.5; O2SAT 97
[2023-03-30] MEDS: OMEGA-3/DHA/EPA/FISH OIL 1,000 MG CAPSULE PO SCH (09:24)
[2023-03-30] MEDS: OLANZapine 5 MG TABLET PO SCH (09:24)
[2023-03-30] MEDS: OLANZapine 7.5 MG TABLET PO SCH (20:24)
[2023-03-30 22:13] VITALS: BP 135/89; PULSE 86; RESP 18; TEMP 97.6; O2SAT 98
[2023-03-30] MEDS: FLUTICASONE PROPIONATE 50 MCG/SPRAY 16 GM NASAL SPRAY NASAL PRN (23:15)
[2023-03-31] MEDS: OMEGA-3/DHA/EPA/FISH OIL 1,000 MG CAPSULE PO SCH (08:47)
[2023-03-31] MEDS: OLANZapine 5 MG TABLET PO SCH (08:47)
[2023-03-31 09:03] VITALS: BP 133/90; PULSE 79; RESP 17; TEMP 97.5; O2SAT 96
[2023-03-31 20:08] VITALS: BP 124/84; PULSE 95; RESP 18; TEMP 98.2; O2SAT 98
[2023-03-31] MEDS: OLANZapine 7.5 MG TABLET PO SCH (20:45)
[2023-03-31] MEDS: FLUTICASONE PROPIONATE 50 MCG/SPRAY 16 GM NASAL SPRAY NASAL PRN (21:10)
[2023-04-01 05:20] VITALS: BP 149/102; PULSE 75; RESP 18; TEMP 97.5; O2SAT 99
[2023-04-01] MEDS: IBUPROFEN 400 MG TABLET PO PRN ×3 (05:27→20:15)
[2023-04-01 08:10] VITALS: BP 146/97; PULSE 87; RESP 18; TEMP 98.2; O2SAT 97
[2023-04-01] MEDS: OLANZapine 5 MG TABLET PO SCH (08:32)
[2023-04-01] MEDS: OMEGA-3/DHA/EPA/FISH OIL 1,000 MG CAPSULE PO SCH (08:32)
[2023-04-01 12:31] VITALS: BP 123/81; PULSE 84; RESP 18
[2023-04-01 13:36] VITALS: RESP 18
[2023-04-01] MEDS: FLUTICASONE PROPIONATE 50 MCG/SPRAY 16 GM NASAL SPRAY NASAL PRN (18:28)
[2023-04-01 20:15] VITALS: BP 135/83; PULSE 93; RESP 18; TEMP 98.3; O2SAT 98
[2023-04-01] MEDS: OLANZapine 7.5 MG TABLET PO SCH (20:28)
[2023-04-01 21:15] VITALS: RESP 18
[2023-04-02 03:50] VITALS: BP 138/95; PULSE 84; RESP 18; TEMP 97.5; O2SAT 100
[2023-04-02] MEDS: IBUPROFEN 400 MG TABLET PO PRN ×3 (03:50→21:42)
[2023-04-02 08:05] VITALS: BP 105/62; PULSE 70; RESP 18; TEMP 98; O2SAT 99
[2023-04-02] MEDS: OLANZapine 5 MG TABLET PO SCH (08:18)
[2023-04-02] MEDS: OMEGA-3/DHA/EPA/FISH OIL 1,000 MG CAPSULE PO SCH (08:18)
[2023-04-02 20:11] VITALS: BP 115/74; PULSE 78; RESP 19; TEMP 98.1; O2SAT 95
[2023-04-02] MEDS: OLANZapine 7.5 MG TABLET PO SCH (20:44)
[2023-04-02 21:42] VITALS: BP 132/82; PULSE 72; RESP 18; TEMP 97.8; O2SAT 96
[2023-04-02] MEDS: FLUTICASONE PROPIONATE 50 MCG/SPRAY 16 GM NASAL SPRAY NASAL PRN (21:43)
[2023-04-02 22:42] VITALS: RESP 16; TEMP 98
[2023-04-03] VITALS (8 sets, daily range): BP systolic 135–141; BP diastolic 78–98; PULSE 68–88; RESP 17–18; TEMP 97.5–98.1; O2SAT 96–98
[2023-04-03] MEDS: ACETAMINOPHEN 325 MG TABLET PO PRN ×2 (05:05→13:19)
[2023-04-03] MEDS: IBUPROFEN 400 MG TABLET PO PRN ×2 (08:07→20:48)
[2023-04-03] MEDS: OLANZapine 5 MG TABLET PO SCH (09:14)
[2023-04-03] MEDS: OMEGA-3/DHA/EPA/FISH OIL 1,000 MG CAPSULE PO SCH (09:14)
[2023-04-03] MEDS: OLANZapine 7.5 MG TABLET PO SCH (20:49)
[2023-04-04] VITALS (7 sets, daily range): BP systolic 114–139; BP diastolic 61–93; PULSE 75–85; RESP 17–18; TEMP 97.6–98.1; O2SAT 97
[2023-04-04] MEDS: ACETAMINOPHEN 325 MG TABLET PO PRN (01:02)
[2023-04-04] MEDS: FLUTICASONE PROPIONATE 50 MCG/SPRAY 16 GM NASAL SPRAY NASAL PRN ×2 (03:03→22:14)
[2023-04-04] MEDS: OMEGA-3/DHA/EPA/FISH OIL 1,000 MG CAPSULE PO SCH (08:02)
[2023-04-04] MEDS: OLANZapine 5 MG TABLET PO SCH (08:02)
[2023-04-04] MEDS: IBUPROFEN 400 MG TABLET PO PRN ×2 (08:03→20:08)
[2023-04-04] MEDS ORDERED: TUBERCULIN, PURIFIED PROTEIN DERIVATIVE 5 TU/0.1 ML SYRINGE ID ONE (09:00)
[2023-04-04] MEDS: OLANZapine 7.5 MG TABLET PO SCH (20:02)
[2023-04-05] VITALS (8 sets, daily range): BP systolic 132–143; BP diastolic 65–92; PULSE 90–98; RESP 16–18; TEMP 97.6–98.2; O2SAT 96–100
[2023-04-05] MEDS: OLANZapine 5 MG TABLET PO SCH (08:02)
[2023-04-05] MEDS: IBUPROFEN 400 MG TABLET PO PRN ×2 (08:02→19:18)
[2023-04-05] MEDS: OMEGA-3/DHA/EPA/FISH OIL 1,000 MG CAPSULE PO SCH (08:02)
[2023-04-05] MEDS: ACETAMINOPHEN 325 MG TABLET PO PRN (12:01)
[2023-04-05] MEDS: OLANZapine 7.5 MG TABLET PO SCH (20:05)
[2023-04-06] MEDS: FLUTICASONE PROPIONATE 50 MCG/SPRAY 16 GM NASAL SPRAY NASAL PRN (00:37)
[2023-04-06] MEDS: OMEGA-3/DHA/EPA/FISH OIL 1,000 MG CAPSULE PO SCH (08:01)
[2023-04-06] MEDS: OLANZapine 5 MG TABLET PO SCH (08:01)
[2023-04-06 08:04] VITALS: BP 139/68; PULSE 80; RESP 17; TEMP 98; O2SAT 98
[2023-04-06 09:30] VITALS: RESP 17
[2023-04-06] MEDS: IBUPROFEN 400 MG TABLET PO PRN ×2 (09:30→20:43)
[2023-04-06 10:30] VITALS: RESP 16
[2023-04-06] MEDS: OLANZapine 7.5 MG TABLET PO SCH (20:35)
[2023-04-06 20:43] VITALS: BP 140/88; PULSE 88; RESP 18
[2023-04-06 21:09] VITALS: BP 140/88; PULSE 88; RESP 18; TEMP 97.7
[2023-04-06 21:43] VITALS: RESP 17
[2023-04-06] MEDS: ACETAMINOPHEN 325 MG TABLET PO PRN (21:54)
[2023-04-07] MEDS: FLUTICASONE PROPIONATE 50 MCG/SPRAY 16 GM NASAL SPRAY NASAL PRN ×2 (00:36→21:31)
[2023-04-07] MEDS: GuaiFENesin/D-METHORPHAN [SUGAR-FREE] 200-20MG/10 ML SYRUP UDCUP PO PRN (00:36)
[2023-04-07 08:03] VITALS: BP 138/86; PULSE 89; RESP 16; TEMP 97.4; O2SAT 98
[2023-04-07] MEDS: OMEGA-3/DHA/EPA/FISH OIL 1,000 MG CAPSULE PO SCH (08:16)
[2023-04-07] MEDS: OLANZapine 5 MG TABLET PO SCH (08:16)
[2023-04-07] MEDS: OLANZapine 7.5 MG TABLET PO SCH (20:31)
[2023-04-07 20:58] VITALS: BP 126/84; PULSE 81; RESP 18; TEMP 98.2; O2SAT 98
[2023-04-07] MEDS: IBUPROFEN 400 MG TABLET PO PRN (21:03)
[2023-04-07 22:03] VITALS: RESP 18
[2023-04-08] MEDS: HALOPERIDOL 5 MG TABLET PO PRN (00:53)
[2023-04-08 08:13] VITALS: RESP 18
[2023-04-08] MEDS: OMEGA-3/DHA/EPA/FISH OIL 1,000 MG CAPSULE PO SCH (08:13)
[2023-04-08] MEDS: IBUPROFEN 400 MG TABLET PO PRN ×2 (08:13→17:51)
[2023-04-08] MEDS: OLANZapine 5 MG TABLET PO SCH (08:13)
[2023-04-08 09:00] VITALS: BP 146/91; PULSE 91; RESP 18; TEMP 98; O2SAT 97
[2023-04-08 09:13] VITALS: RESP 18
[2023-04-08 17:49] VITALS: BP 134/81; PULSE 87; RESP 18
[2023-04-08 18:51] VITALS: RESP 18
[2023-04-08] MEDS: OLANZapine 7.5 MG TABLET PO SCH (20:27)
[2023-04-08 20:28] VITALS: BP 135/75; PULSE 98; RESP 18; TEMP 97.6; O2SAT 96
[2023-04-09] MEDS: IBUPROFEN 400 MG TABLET PO PRN ×2 (04:14→22:16)
[2023-04-09 08:18] VITALS: BP 128/88; PULSE 76; RESP 18; TEMP 98; O2SAT 99
[2023-04-09] MEDS: OMEGA-3/DHA/EPA/FISH OIL 1,000 MG CAPSULE PO SCH (08:44)
[2023-04-09] MEDS: OLANZapine 5 MG TABLET PO SCH (08:44)
[2023-04-09] MEDS: OLANZapine 7.5 MG TABLET PO SCH (20:29)
[2023-04-09] MEDS: NICOTINE 14 MG/24 HOUR PATCH TD PRN (20:42)
[2023-04-09 21:21] VITALS: BP 132/91; PULSE 93; RESP 18; TEMP 98.2; O2SAT 98
[2023-04-09 23:09] VITALS: RESP 18
[2023-04-10] VITALS (7 sets, daily range): BP systolic 133–149; BP diastolic 91–96; PULSE 75–100; RESP 18–19; TEMP 98–98.3; O2SAT 95–97
[2023-04-10] MEDS: IBUPROFEN 400 MG TABLET PO PRN ×2 (05:59→08:31)
[2023-04-10] MEDS: OLANZapine 5 MG TABLET PO SCH (08:56)
[2023-04-10] MEDS: OMEGA-3/DHA/EPA/FISH OIL 1,000 MG CAPSULE PO SCH (08:56)
[2023-04-10] MEDS: OLANZapine 7.5 MG TABLET PO SCH (20:06)
[2023-04-10] MEDS: NICOTINE 14 MG/24 HOUR PATCH TD PRN (20:54)
[2023-04-10] MEDS: ACETAMINOPHEN 325 MG TABLET PO PRN (21:55)
[2023-04-11 04:32] VITALS: BP 145/93; PULSE 83; RESP 18; TEMP 97.6; O2SAT 96
[2023-04-11] MEDS: IBUPROFEN 400 MG TABLET PO PRN ×2 (04:35→21:36)
[2023-04-11 08:01] VITALS: BP 149/98; PULSE 65; RESP 18; TEMP 97.5; O2SAT 95
[2023-04-11] MEDS: OLANZapine 5 MG TABLET PO SCH (08:03)
[2023-04-11] MEDS: OMEGA-3/DHA/EPA/FISH OIL 1,000 MG CAPSULE PO SCH (08:03)
[2023-04-11 20:03] VITALS: BP 133/81; PULSE 82; RESP 18; TEMP 98.1; O2SAT 96
[2023-04-11] MEDS: OLANZapine 7.5 MG TABLET PO SCH (20:31)
[2023-04-12] MEDS: ACETAMINOPHEN 325 MG TABLET PO PRN (00:43)
[2023-04-12] MEDS: IBUPROFEN 400 MG TABLET PO PRN ×3 (04:33→20:16)
[2023-04-12] MEDS: NICOTINE 14 MG/24 HOUR PATCH TD PRN (08:12)
[2023-04-12] MEDS: OMEGA-3/DHA/EPA/FISH OIL 1,000 MG CAPSULE PO SCH (08:12)
[2023-04-12] MEDS: OLANZapine 5 MG TABLET PO SCH (08:12)
[2023-04-12] MEDS: HALOPERIDOL 5 MG TABLET PO PRN (08:12)
[2023-04-12 08:55] VITALS: BP 150/96; PULSE 94; RESP 18; TEMP 97.7; O2SAT 99
[2023-04-12 12:50] VITALS: RESP 18; O2SAT 99
[2023-04-12 20:00] VITALS: BP 123/66; PULSE 89; RESP 19; TEMP 97.7; O2SAT 97
[2023-04-12 20:12] VITALS: RESP 18
[2023-04-12] MEDS: OLANZapine 7.5 MG TABLET PO SCH (20:28)
[2023-04-12 21:16] VITALS: RESP 18
[2023-04-12] MEDS: FLUTICASONE PROPIONATE 50 MCG/SPRAY 16 GM NASAL SPRAY NASAL PRN (23:13)
[2023-04-13 00:39] VITALS: RESP 18
[2023-04-13] MEDS: ACETAMINOPHEN 325 MG TABLET PO PRN ×3 (00:39→21:47)
[2023-04-13 01:39] VITALS: RESP 18
[2023-04-13] MEDS: IBUPROFEN 400 MG TABLET PO PRN ×2 (03:12→09:38)
[2023-04-13] MEDS: OLANZapine 5 MG TABLET PO SCH (08:31)
[2023-04-13] MEDS: OMEGA-3/DHA/EPA/FISH OIL 1,000 MG CAPSULE PO SCH (08:31)
[2023-04-13 09:00] VITALS: BP 144/102; PULSE 92; RESP 19; TEMP 98
[2023-04-13 12:32] VITALS: BP 140/92; RESP 18
[2023-04-13 20:02] VITALS: BP 138/90; PULSE 83; RESP 18; TEMP 98
[2023-04-13] MEDS: OLANZapine 7.5 MG TABLET PO SCH (20:07)
[2023-04-14] MEDS: IBUPROFEN 400 MG TABLET PO PRN (02:54)
[2023-04-14 08:34] VITALS: BP 140/100; PULSE 90; RESP 18; TEMP 97.7; O2SAT 98
[2023-04-14] MEDS: OLANZapine 5 MG TABLET PO SCH (08:49)
[2023-04-14] MEDS: HALOPERIDOL 5 MG TABLET PO PRN (08:49)
[2023-04-14] MEDS: OMEGA-3/DHA/EPA/FISH OIL 1,000 MG CAPSULE PO SCH (08:49)
[2023-04-14] MEDS: OLANZapine 7.5 MG TABLET PO SCH (20:08)
[2023-04-14 20:11] VITALS: BP 133/86; PULSE 97; RESP 18; TEMP 98.1; O2SAT 97
[2023-04-14] MEDS: ACETAMINOPHEN 325 MG TABLET PO PRN (22:17)
[2023-04-14 22:19] VITALS: RESP 18
[2023-04-14 23:17] VITALS: RESP 18
[2023-04-15] MEDS: OMEGA-3/DHA/EPA/FISH OIL 1,000 MG CAPSULE PO SCH (08:57)
[2023-04-15] MEDS: OLANZapine 5 MG TABLET PO SCH (08:57)
[2023-04-15 12:25] VITALS: RESP 18; O2SAT 97
[2023-04-15] MEDS: ACETAMINOPHEN 325 MG TABLET PO PRN ×2 (12:25→20:28)
[2023-04-15 13:25] VITALS: RESP 17
[2023-04-15] MEDS: OLANZapine 7.5 MG TABLET PO SCH (20:31)
[2023-04-15 20:34] VITALS: BP 130/84; PULSE 100; RESP 18; TEMP 97.9; O2SAT 99
[2023-04-15 21:46] VITALS: RESP 18
[2023-04-15] MEDS: FLUTICASONE PROPIONATE 50 MCG/SPRAY 16 GM NASAL SPRAY NASAL PRN (22:03)
[2023-04-16] MEDS: IBUPROFEN 400 MG TABLET PO PRN (02:11)
[2023-04-16 08:01] VITALS: BP 147/98; PULSE 81; RESP 18; TEMP 97.3; O2SAT 96
[2023-04-16] MEDS: OMEGA-3/DHA/EPA/FISH OIL 1,000 MG CAPSULE PO SCH (08:11)
[2023-04-16] MEDS: OLANZapine 5 MG TABLET PO SCH (08:11)
[2023-04-16] MEDS: ACETAMINOPHEN 325 MG TABLET PO PRN (19:53)
[2023-04-16 19:55] VITALS: RESP 18
[2023-04-16 20:22] VITALS: BP 147/99; PULSE 109; RESP 19; O2SAT 96
[2023-04-16] MEDS: OLANZapine 7.5 MG TABLET PO SCH (20:43)
[2023-04-17] VITALS (7 sets, daily range): BP systolic 120–142; BP diastolic 70–90; PULSE 80–98; RESP 18; TEMP 97.7–98.4; O2SAT 96–98
[2023-04-17] MEDS: IBUPROFEN 400 MG TABLET PO PRN (00:52)
[2023-04-17] MEDS: OMEGA-3/DHA/EPA/FISH OIL 1,000 MG CAPSULE PO SCH (08:48)
[2023-04-17] MEDS: OLANZapine 5 MG TABLET PO SCH (08:49)
[2023-04-17] MEDS: ACETAMINOPHEN 325 MG TABLET PO PRN ×2 (12:27→21:02)
[2023-04-17] MEDS: OLANZapine 7.5 MG TABLET PO SCH (20:19)
[2023-04-18] MEDS: IBUPROFEN 400 MG TABLET PO PRN (03:53)
[2023-04-18 08:04] VITALS: BP 144/96; PULSE 89; RESP 18; TEMP 97.3; O2SAT 95
[2023-04-18] MEDS: OLANZapine 5 MG TABLET PO SCH (08:05)
[2023-04-18] MEDS: OMEGA-3/DHA/EPA/FISH OIL 1,000 MG CAPSULE PO SCH (08:05)
[2023-04-18 08:29] LABS: PH,URINE DRUG SCREEN 6.5 (5.0-8.0)
[2023-04-18 08:33] VITALS: RESP 17
[2023-04-18] MEDS: ACETAMINOPHEN 325 MG TABLET PO PRN (08:33)
[2023-04-18 08:38] LABS: AMPHET/METH SCREEN,URINE NEGATIVE (NEGATIVE); BARBITURATE SCREEN, URINE NEGATIVE (NEGATIVE); BENZODIAZEPINES SCREEN,URINE NEGATIVE (NEGATIVE); CANNABINOID SCREEN,URINE NEGATIVE (NEGATIVE); COCAINE SCREEN,URINE NEGATIVE (NEGATIVE); METHADONE SCREEN, URINE NEGATIVE (NEGATIVE); OPIATE SCREEN,URINE NEGATIVE (NEGATIVE); PHENCYCLIDINE SCREEN,URINE NEGATIVE (NEGATIVE)
[2023-04-18 08:39] LABS: ALCOHOL, URINE DRUG SCREEN NEGATIVE (NEGATIVE)
[2023-04-18 09:33] VITALS: RESP 16
[2023-04-18] MEDS: OLANZapine 7.5 MG TABLET PO SCH (20:02)
[2023-04-18 20:37] VITALS: BP 137/97; PULSE 104; RESP 18; TEMP 97.6; O2SAT 96
[2023-04-19 02:35] VITALS: BP 114/79; PULSE 94; RESP 18; TEMP 97.6; O2SAT 98
[2023-04-19] MEDS: ACETAMINOPHEN 325 MG TABLET PO PRN (02:42)
[2023-04-19 03:35] VITALS: RESP 18
[2023-04-19] MEDS: PETROLATUM,WHITE 28 GM JELLY TP PRN (03:51)
[2023-04-19] MEDS: OMEGA-3/DHA/EPA/FISH OIL 1,000 MG CAPSULE PO SCH (08:05)
[2023-04-19] MEDS: OLANZapine 5 MG TABLET PO SCH (08:05)
[2023-04-19] MEDS ORDERED: MAGNESIUM SULFATE 454 GM BAG TP ONE (09:30)
[2023-04-19 20:05] VITALS: BP 139/93; PULSE 100; RESP 18; TEMP 97.7; O2SAT 98
[2023-04-19] MEDS: OLANZapine 7.5 MG TABLET PO SCH (20:43)
[2023-04-19] MEDS: HALOPERIDOL 5 MG TABLET PO PRN (23:14)
[2023-04-20] MEDS: OLANZapine 5 MG TABLET PO SCH (08:00)
[2023-04-20] MEDS: OMEGA-3/DHA/EPA/FISH OIL 1,000 MG CAPSULE PO SCH (08:00)
[2023-04-20] MEDS: MAGNESIUM SULFATE 454 GM BAG TP SCH (08:01)
[2023-04-20 09:20] VITALS: BP 104/95; PULSE 95; RESP 18; TEMP 97.4; O2SAT 98
[2023-04-20 20:03] VITALS: BP 120/87; PULSE 98; RESP 18; TEMP 98.5; O2SAT 98
[2023-04-20] MEDS: OLANZapine 7.5 MG TABLET PO SCH (20:17)
[2023-04-20] MEDS: HALOPERIDOL 5 MG TABLET PO PRN (20:54)
[2023-04-21] MEDS: OMEGA-3/DHA/EPA/FISH OIL 1,000 MG CAPSULE PO SCH (08:17)
[2023-04-21] MEDS: OLANZapine 5 MG TABLET PO SCH (08:17)
[2023-04-21] MEDS: MAGNESIUM SULFATE 454 GM BAG TP SCH (08:18)
[2023-04-21 09:15] VITALS: BP 132/95; PULSE 100; RESP 19; TEMP 97.7; O2SAT 98
[2023-04-21 20:09] VITALS: BP 140/94; PULSE 100; RESP 19; TEMP 98.2; O2SAT 98
[2023-04-21] MEDS: OLANZapine 7.5 MG TABLET PO SCH (20:28)
[2023-04-22 08:01] VITALS: BP 138/97; PULSE 92; RESP 18; TEMP 97.4; O2SAT 96
[2023-04-22] MEDS: OMEGA-3/DHA/EPA/FISH OIL 1,000 MG CAPSULE PO SCH (08:21)
[2023-04-22] MEDS: MAGNESIUM SULFATE 454 GM BAG TP SCH (08:21)
[2023-04-22] MEDS: OLANZapine 5 MG TABLET PO SCH (08:21)
[2023-04-22] MEDS: OLANZapine 7.5 MG TABLET PO SCH (20:28)
[2023-04-22 20:32] VITALS: BP 120/86; PULSE 97; RESP 19; TEMP 97.4; O2SAT 99
[2023-04-23 08:05] VITALS: BP 143/93; PULSE 84; RESP 18; TEMP 97.6; O2SAT 97
[2023-04-23] MEDS: OMEGA-3/DHA/EPA/FISH OIL 1,000 MG CAPSULE PO SCH (08:20)
[2023-04-23] MEDS: OLANZapine 5 MG TABLET PO SCH (08:20)
[2023-04-23] MEDS: MAGNESIUM SULFATE 454 GM BAG TP SCH (09:38)
[2023-04-23 20:25] VITALS: BP 126/90; PULSE 99; RESP 19; TEMP 97.8; O2SAT 96
[2023-04-23] MEDS: OLANZapine 7.5 MG TABLET PO SCH (20:27)
[2023-04-23] MEDS: FLUTICASONE PROPIONATE 50 MCG/SPRAY 16 GM NASAL SPRAY NASAL PRN (22:50)
[2023-04-24 00:48] VITALS: BP 138/96; PULSE 99; RESP 18; TEMP 97.9; O2SAT 99
[2023-04-24] MEDS: ACETAMINOPHEN 325 MG TABLET PO PRN (00:52)
[2023-04-24 08:03] VITALS: BP 103/81; PULSE 85; RESP 19; TEMP 97.5; O2SAT 95
[2023-04-24] MEDS: OLANZapine 5 MG TABLET PO SCH (08:17)
[2023-04-24] MEDS: OMEGA-3/DHA/EPA/FISH OIL 1,000 MG CAPSULE PO SCH (08:17)
[2023-04-24] MEDS: MAGNESIUM SULFATE 454 GM BAG TP SCH (08:28)
[2023-04-24 13:35] VITALS: RESP 19; O2SAT 95
[2023-04-24] MEDS: IBUPROFEN 400 MG TABLET PO PRN (13:35)
[2023-04-24 14:35] VITALS: RESP 18
[2023-04-24 20:06] VITALS: BP 128/83; PULSE 91; RESP 18; TEMP 97.6; O2SAT 98
[2023-04-24] MEDS: MELATONIN 5 MG TABLET PO SCH (20:49)
[2023-04-24] MEDS: OLANZapine 7.5 MG TABLET PO SCH (20:49)
[2023-04-25 01:10] VITALS: BP 124/80; PULSE 82; RESP 18; TEMP 97.8; O2SAT 97
[2023-04-25] MEDS: IBUPROFEN 400 MG TABLET PO PRN (01:17)
[2023-04-25] MEDS: OLANZapine 5 MG TABLET PO SCH (08:15)
[2023-04-25] MEDS: OMEGA-3/DHA/EPA/FISH OIL 1,000 MG CAPSULE PO SCH (08:15)
[2023-04-25 08:20] VITALS: BP 147/92; PULSE 93; RESP 18; TEMP 97.6; O2SAT 98
[2023-04-25] MEDS: MAGNESIUM SULFATE 454 GM BAG TP SCH (10:08)
[2023-04-25 16:00] VITALS: BP 149/99; PULSE 96; RESP 18; TEMP 98; O2SAT 98
[2023-04-25 20:11] VITALS: BP 123/84; PULSE 87; RESP 20; TEMP 98; O2SAT 97
[2023-04-25] MEDS: OLANZapine 7.5 MG TABLET PO SCH (20:20)
[2023-04-25] MEDS: MELATONIN 5 MG TABLET PO SCH (20:21)
[2023-04-26] MEDS: HALOPERIDOL 5 MG TABLET PO PRN ×2 (01:05→23:47)
[2023-04-26 08:24] VITALS: BP 146/97; PULSE 100; RESP 17; TEMP 97.4; O2SAT 97
[2023-04-26] MEDS: OLANZapine 5 MG TABLET PO SCH (09:42)
[2023-04-26] MEDS: OMEGA-3/DHA/EPA/FISH OIL 1,000 MG CAPSULE PO SCH (09:42)
[2023-04-26] MEDS: MAGNESIUM SULFATE 454 GM BAG TP SCH (09:46)
[2023-04-26 20:00] VITALS: BP 150/98; PULSE 98; RESP 18; TEMP 98.2; O2SAT 97
[2023-04-26] MEDS: OLANZapine 7.5 MG TABLET PO SCH (20:02)
[2023-04-26] MEDS: MELATONIN 5 MG TABLET PO SCH (20:08)
[2023-04-27] MEDS: GuaiFENesin/D-METHORPHAN [SUGAR-FREE] 200-20MG/10 ML SYRUP UDCUP PO PRN (01:07)
[2023-04-27 08:40] VITALS: BP 140/90; PULSE 96; RESP 19; TEMP 97.6; O2SAT 97
[2023-04-27] MEDS: OMEGA-3/DHA/EPA/FISH OIL 1,000 MG CAPSULE PO SCH (08:51)
[2023-04-27] MEDS: OLANZapine 5 MG TABLET PO SCH (08:52)
[2023-04-27] MEDS: MAGNESIUM SULFATE 454 GM BAG TP SCH (10:21)
[2023-04-27] MEDS: LORazepam 2 MG TABLET PO PRN (12:47)
[2023-04-27] MEDS: OLANZapine 7.5 MG TABLET PO SCH (20:08)
[2023-04-27] MEDS: MELATONIN 5 MG TABLET PO SCH (20:09)
[2023-04-27 20:30] VITALS: BP 113/69; PULSE 99; RESP 19; TEMP 98.4; O2SAT 94
[2023-04-28] MEDS: LORazepam 2 MG TABLET PO PRN ×2 (00:32→21:06)
[2023-04-28] MEDS: OLANZapine 5 MG TABLET PO SCH (08:34)
[2023-04-28] MEDS: OMEGA-3/DHA/EPA/FISH OIL 1,000 MG CAPSULE PO SCH (08:34)
[2023-04-28 08:46] VITALS: BP 120/73; PULSE 77; RESP 18; TEMP 98.2; O2SAT 94
[2023-04-28] MEDS: MAGNESIUM SULFATE 454 GM BAG TP SCH (10:20)
[2023-04-28] MEDS: MELATONIN 5 MG TABLET PO SCH (20:10)
[2023-04-28] MEDS: OLANZapine 7.5 MG TABLET PO SCH (20:10)
[2023-04-28 20:30] VITALS: BP 135/91; PULSE 100; RESP 19; TEMP 98.1; O2SAT 94
[2023-04-28] MEDS: FLUTICASONE PROPIONATE 50 MCG/SPRAY 16 GM NASAL SPRAY NASAL PRN (23:53)
[2023-04-29 08:09] VITALS: BP 146/97; PULSE 96; RESP 18; TEMP 97.8; O2SAT 98
[2023-04-29] MEDS: OLANZapine 5 MG TABLET PO SCH (08:11)
[2023-04-29] MEDS: OMEGA-3/DHA/EPA/FISH OIL 1,000 MG CAPSULE PO SCH (08:11)
[2023-04-29] MEDS: MAGNESIUM SULFATE 454 GM BAG TP SCH (08:13)
[2023-04-29 20:03] VITALS: BP 130/88; PULSE 108; RESP 19; TEMP 98; O2SAT 96
[2023-04-29] MEDS: LORazepam 2 MG TABLET PO PRN (20:04)
[2023-04-29] MEDS: MELATONIN 5 MG TABLET PO SCH (20:04)
[2023-04-29] MEDS: OLANZapine 7.5 MG TABLET PO SCH (20:04)
[2023-04-30] MEDS: GuaiFENesin/D-METHORPHAN [SUGAR-FREE] 200-20MG/10 ML SYRUP UDCUP PO PRN (00:30)
[2023-04-30 08:11] VITALS: BP 113/60; PULSE 65; RESP 19; TEMP 98.2; O2SAT 98
[2023-04-30] MEDS: OMEGA-3/DHA/EPA/FISH OIL 1,000 MG CAPSULE PO SCH (08:16)
[2023-04-30] MEDS: OLANZapine 5 MG TABLET PO SCH (08:16)
[2023-04-30] MEDS: MAGNESIUM SULFATE 454 GM BAG TP SCH (08:18)
[2023-04-30 20:03] VITALS: BP 131/90; PULSE 103; RESP 20; TEMP 97.5; O2SAT 95
[2023-04-30] MEDS: MELATONIN 5 MG TABLET PO SCH (20:20)
[2023-04-30] MEDS: OLANZapine 7.5 MG TABLET PO SCH (20:20)
[2023-04-30] MEDS: LORazepam 2 MG TABLET PO PRN (23:24)
[2023-05-01 08:19] VITALS: BP 140/88; PULSE 89; RESP 18; TEMP 98.4; O2SAT 98
[2023-05-01] MEDS: OLANZapine 5 MG TABLET PO SCH (09:01)
[2023-05-01] MEDS: OMEGA-3/DHA/EPA/FISH OIL 1,000 MG CAPSULE PO SCH (09:01)
[2023-05-01] MEDS: MAGNESIUM SULFATE 454 GM BAG TP SCH (10:15)
[2023-05-01 20:08] VITALS: BP 126/93; PULSE 96; RESP 19; TEMP 97.9; O2SAT 94
[2023-05-01] MEDS: LORazepam 2 MG TABLET PO PRN (20:22)
[2023-05-01] MEDS: OLANZapine 7.5 MG TABLET PO SCH (20:22)
[2023-05-01] MEDS: MELATONIN 5 MG TABLET PO SCH (20:23)
[2023-05-01 22:23] VITALS: RESP 17
[2023-05-01] MEDS: ACETAMINOPHEN 325 MG TABLET PO PRN (22:23)
[2023-05-01] MEDS: PETROLATUM,WHITE 28 GM JELLY TP PRN (22:23)
[2023-05-02 00:34] VITALS: BP 136/93; PULSE 89; RESP 18; TEMP 97.8; O2SAT 97
[2023-05-02] MEDS: HALOPERIDOL 5 MG TABLET PO PRN (00:37)
[2023-05-02 08:04] VITALS: BP 140/89; PULSE 93; RESP 18; TEMP 97.9; O2SAT 98
[2023-05-02] MEDS: OLANZapine 5 MG TABLET PO SCH (08:21)
[2023-05-02] MEDS: OMEGA-3/DHA/EPA/FISH OIL 1,000 MG CAPSULE PO SCH (08:21)
[2023-05-02] MEDS: MAGNESIUM SULFATE 454 GM BAG TP SCH (10:32)
[2023-05-02] MEDS: OLANZapine 7.5 MG TABLET PO SCH (20:09)
[2023-05-02] MEDS: MELATONIN 5 MG TABLET PO SCH (20:11)
[2023-05-02] MEDS: FLUTICASONE PROPIONATE 50 MCG/SPRAY 16 GM NASAL SPRAY NASAL PRN (20:56)
[2023-05-02 21:10] VITALS: BP 114/59; PULSE 102; RESP 19; TEMP 98.1; O2SAT 98
[2023-05-03] MEDS: LORazepam 2 MG TABLET PO PRN (01:01)
[2023-05-03 08:03] VITALS: BP 140/89; PULSE 110; RESP 18; TEMP 97.6; O2SAT 98
[2023-05-03] MEDS: OMEGA-3/DHA/EPA/FISH OIL 1,000 MG CAPSULE PO SCH (08:06)
[2023-05-03] MEDS: OLANZapine 5 MG TABLET PO SCH (08:06)
[2023-05-03] MEDS: MAGNESIUM SULFATE 454 GM BAG TP SCH (12:33)
[2023-05-03] MEDS: MELATONIN 5 MG TABLET PO SCH (20:01)
[2023-05-03] MEDS: OLANZapine 7.5 MG TABLET PO SCH (20:01)
[2023-05-03 20:12] VITALS: BP 141/82; PULSE 102; RESP 19; TEMP 97.8; O2SAT 97
[2023-05-04] MEDS: LORazepam 2 MG TABLET PO PRN ×2 (01:02→20:07)
[2023-05-04] MEDS: OMEGA-3/DHA/EPA/FISH OIL 1,000 MG CAPSULE PO SCH (08:06)
[2023-05-04] MEDS: OLANZapine 5 MG TABLET PO SCH (08:06)
[2023-05-04 08:20] VITALS: BP 126/66; PULSE 91; RESP 18; TEMP 98; O2SAT 95
[2023-05-04] MEDS: MAGNESIUM SULFATE 454 GM BAG TP SCH (12:08)
[2023-05-04 20:05] VITALS: BP 132/81; PULSE 87; RESP 18; TEMP 97.7
[2023-05-04] MEDS: MELATONIN 5 MG TABLET PO SCH (20:06)
[2023-05-04] MEDS: OLANZapine 7.5 MG TABLET PO SCH (20:06)
[2023-05-05] MEDS: LORazepam 2 MG TABLET PO PRN ×2 (00:18→20:03)
[2023-05-05] MEDS: OMEGA-3/DHA/EPA/FISH OIL 1,000 MG CAPSULE PO SCH (08:10)
[2023-05-05] MEDS: OLANZapine 5 MG TABLET PO SCH (08:10)
[2023-05-05 08:43] VITALS: BP 133/111; PULSE 104; RESP 19; TEMP 97.7; O2SAT 96
[2023-05-05] MEDS: MAGNESIUM SULFATE 454 GM BAG TP SCH (09:00)
[2023-05-05] MEDS: MELATONIN 5 MG TABLET PO SCH (20:03)
[2023-05-05] MEDS: OLANZapine 7.5 MG TABLET PO SCH (20:04)
[2023-05-05 20:32] VITALS: BP 138/76; PULSE 85; RESP 18; TEMP 97.8; O2SAT 95
[2023-05-06] MEDS: LORazepam 2 MG TABLET PO PRN ×3 (04:22→17:29)
[2023-05-06 08:08] VITALS: BP 136/82; PULSE 85; RESP 17; TEMP 97.8; O2SAT 95
[2023-05-06] MEDS: OLANZapine 5 MG TABLET PO SCH (08:17)
[2023-05-06] MEDS: MAGNESIUM SULFATE 454 GM BAG TP SCH (08:17)
[2023-05-06] MEDS: OMEGA-3/DHA/EPA/FISH OIL 1,000 MG CAPSULE PO SCH (08:17)
[2023-05-06 20:01] VITALS: BP 109/84; PULSE 99; RESP 19; TEMP 97.6; O2SAT 95
[2023-05-06] MEDS: OLANZapine 7.5 MG TABLET PO SCH (20:40)
[2023-05-06] MEDS: MELATONIN 5 MG TABLET PO SCH (20:40)
[2023-05-07] MEDS: LORazepam 2 MG TABLET PO PRN ×2 (00:45→20:53)
[2023-05-07 08:03] VITALS: BP 123/79; PULSE 92; RESP 18; TEMP 97.5; O2SAT 98
[2023-05-07] MEDS: MAGNESIUM SULFATE 454 GM BAG TP SCH (09:00)
[2023-05-07] MEDS: OLANZapine 5 MG TABLET PO SCH (09:45)
[2023-05-07] MEDS: OMEGA-3/DHA/EPA/FISH OIL 1,000 MG CAPSULE PO SCH (09:45)
[2023-05-07] MEDS ORDERED: MAGNESIUM SULFATE 454 GM BAG TP SCH (18:00)
[2023-05-07 20:24] VITALS: BP 130/94; PULSE 96; RESP 18; TEMP 97.5; O2SAT 97
[2023-05-07] MEDS: MELATONIN 5 MG TABLET PO SCH (20:35)
[2023-05-07] MEDS: OLANZapine 7.5 MG TABLET PO SCH (20:35)
[2023-05-08 08:06] VITALS: BP 141/61; PULSE 98; RESP 17; TEMP 97.9; O2SAT 98
[2023-05-08] MEDS: OMEGA-3/DHA/EPA/FISH OIL 1,000 MG CAPSULE PO SCH (08:57)
[2023-05-08] MEDS: OLANZapine 5 MG TABLET PO SCH (08:57)
[2023-05-08] MEDS: LORazepam 2 MG TABLET PO PRN ×2 (17:23→21:55)
[2023-05-08] MEDS: MAGNESIUM SULFATE 454 GM BAG TP SCH (18:23)
[2023-05-08 20:28] VITALS: BP 139/97; PULSE 92; RESP 19; TEMP 97.3; O2SAT 96
[2023-05-08] MEDS: MELATONIN 5 MG TABLET PO SCH (20:38)
[2023-05-08] MEDS: OLANZapine 7.5 MG TABLET PO SCH (20:38)
[2023-05-09 03:23] VITALS: BP 152/69; PULSE 99; TEMP 97.8
[2023-05-09] MEDS: LORazepam 2 MG TABLET PO PRN ×4 (03:25→21:46)
[2023-05-09] MEDS: OLANZapine 5 MG TABLET PO SCH (08:04)
[2023-05-09] MEDS: OMEGA-3/DHA/EPA/FISH OIL 1,000 MG CAPSULE PO SCH (08:04)
[2023-05-09 08:11] VITALS: BP 127/81; PULSE 97; RESP 18; TEMP 97.8; O2SAT 94
[2023-05-09] MEDS: MAGNESIUM SULFATE 454 GM BAG TP SCH (18:16)
[2023-05-09] MEDS: OLANZapine 7.5 MG TABLET PO SCH (20:02)
[2023-05-09] MEDS: MELATONIN 5 MG TABLET PO SCH (20:02)
[2023-05-09 20:17] VITALS: BP 144/82; PULSE 107; RESP 18; TEMP 98.8; O2SAT 96
[2023-05-10 09:10] VITALS: BP 120/86; PULSE 102; RESP 18; TEMP 97.5; O2SAT 96
[2023-05-10] MEDS: OLANZapine 5 MG TABLET PO SCH (09:40)
[2023-05-10] MEDS: OMEGA-3/DHA/EPA/FISH OIL 1,000 MG CAPSULE PO SCH (09:40)
[2023-05-10] MEDS: MAGNESIUM SULFATE 454 GM BAG TP SCH (18:17)
[2023-05-10] MEDS: OLANZapine 7.5 MG TABLET PO SCH (20:24)
[2023-05-10] MEDS: MELATONIN 5 MG TABLET PO SCH (20:25)
[2023-05-10 20:30] VITALS: BP 108/64; PULSE 84; RESP 19; TEMP 97.6; O2SAT 94
[2023-05-10] MEDS: LORazepam 2 MG TABLET PO PRN (21:30)
[2023-05-11] MEDS: IBUPROFEN 400 MG TABLET PO PRN (00:46)
[2023-05-11] MEDS: FLUTICASONE PROPIONATE 50 MCG/SPRAY 16 GM NASAL SPRAY NASAL PRN (03:11)
[2023-05-11 08:17] VITALS: BP 140/91; PULSE 96; RESP 19; TEMP 97.3; O2SAT 96
[2023-05-11] MEDS: OMEGA-3/DHA/EPA/FISH OIL 1,000 MG CAPSULE PO SCH (09:23)
[2023-05-11] MEDS: OLANZapine 5 MG TABLET PO SCH (09:24)
[2023-05-11] MEDS: MAGNESIUM SULFATE 454 GM BAG TP SCH (18:04)
[2023-05-11 20:19] VITALS: BP 125/85; PULSE 88; RESP 19; TEMP 97.8; O2SAT 95
[2023-05-11] MEDS: OLANZapine 7.5 MG TABLET PO SCH (20:24)
[2023-05-11] MEDS: LORazepam 2 MG TABLET PO PRN (20:25)
[2023-05-11] MEDS: MELATONIN 5 MG TABLET PO SCH (20:36)
[2023-05-11] MEDS: GuaiFENesin/D-METHORPHAN [SUGAR-FREE] 200-20MG/10 ML SYRUP UDCUP PO PRN (23:50)
[2023-05-12] MEDS: LORazepam 2 MG TABLET PO PRN ×2 (01:38→17:52)
[2023-05-12] MEDS: HALOPERIDOL 5 MG TABLET PO PRN ×2 (01:38→23:10)
[2023-05-12 08:11] VITALS: BP 113/75; PULSE 89; RESP 19; TEMP 97.7; O2SAT 95
[2023-05-12] MEDS: OMEGA-3/DHA/EPA/FISH OIL 1,000 MG CAPSULE PO SCH (08:22)
[2023-05-12] MEDS: OLANZapine 5 MG TABLET PO SCH (08:22)
[2023-05-12] MEDS: MAGNESIUM SULFATE 454 GM BAG TP SCH (18:11)
[2023-05-12] MEDS: MELATONIN 5 MG TABLET PO SCH (20:06)
[2023-05-12] MEDS: OLANZapine 7.5 MG TABLET PO SCH (20:06)
[2023-05-12 20:07] VITALS: BP 126/72; PULSE 78; RESP 20; TEMP 98; O2SAT 99
[2023-05-13] MEDS: LORazepam 2 MG TABLET PO PRN ×4 (01:53→22:22)
[2023-05-13 08:55] VITALS: BP 128/73; PULSE 82; RESP 18; TEMP 97.7; O2SAT 98
[2023-05-13] MEDS: OLANZapine 5 MG TABLET PO SCH (09:30)
[2023-05-13] MEDS: OMEGA-3/DHA/EPA/FISH OIL 1,000 MG CAPSULE PO SCH (09:30)
[2023-05-13] MEDS: MAGNESIUM SULFATE 454 GM BAG TP SCH (19:20)
[2023-05-13 20:07] VITALS: BP 132/107; PULSE 99; RESP 18; TEMP 98; O2SAT 98
[2023-05-13] MEDS: MELATONIN 5 MG TABLET PO SCH (21:04)
[2023-05-13] MEDS: OLANZapine 7.5 MG TABLET PO SCH (21:04)
[2023-05-14] MEDS: HALOPERIDOL 5 MG TABLET PO PRN (00:28)
[2023-05-14] MEDS: GuaiFENesin/D-METHORPHAN [SUGAR-FREE] 200-20MG/10 ML SYRUP UDCUP PO PRN (01:53)
[2023-05-14 08:37] VITALS: BP 126/70; PULSE 96; RESP 18; TEMP 97.6; O2SAT 100
[2023-05-14] MEDS: OMEGA-3/DHA/EPA/FISH OIL 1,000 MG CAPSULE PO SCH (08:40)
[2023-05-14] MEDS: OLANZapine 5 MG TABLET PO SCH (08:40)
[2023-05-14] MEDS: MAGNESIUM SULFATE 454 GM BAG TP SCH (19:25)
[2023-05-14 20:09] VITALS: BP 131/67; PULSE 68; RESP 18; TEMP 97.8; O2SAT 98
[2023-05-14] MEDS: MELATONIN 5 MG TABLET PO SCH (20:39)
[2023-05-14] MEDS: OLANZapine 7.5 MG TABLET PO SCH (20:40)
[2023-05-14] MEDS: LORazepam 2 MG TABLET PO PRN (20:52)
[2023-05-15] MEDS: HALOPERIDOL 5 MG TABLET PO PRN (00:44)
[2023-05-15] MEDS: GuaiFENesin/D-METHORPHAN [SUGAR-FREE] 200-20MG/10 ML SYRUP UDCUP PO PRN ×2 (01:17→22:58)
[2023-05-15 04:23] VITALS: RESP 18
[2023-05-15] MEDS: IBUPROFEN 400 MG TABLET PO PRN (04:26)
[2023-05-15] MEDS: LORazepam 2 MG TABLET PO PRN ×2 (05:40→20:10)
[2023-05-15 08:28] VITALS: BP 119/69; PULSE 82; RESP 18; TEMP 97.7; O2SAT 95
[2023-05-15] MEDS: OMEGA-3/DHA/EPA/FISH OIL 1,000 MG CAPSULE PO SCH (09:53)
[2023-05-15] MEDS: OLANZapine 5 MG TABLET PO SCH (09:53)
[2023-05-15] MEDS: MAGNESIUM SULFATE 454 GM BAG TP SCH (18:35)
[2023-05-15] MEDS: OLANZapine 7.5 MG TABLET PO SCH (20:05)
[2023-05-15] MEDS: MELATONIN 5 MG TABLET PO SCH (20:06)
[2023-05-15 20:29] VITALS: BP 110/71; PULSE 91; RESP 19; TEMP 97.6; O2SAT 98
[2023-05-16] MEDS: HALOPERIDOL 5 MG TABLET PO PRN (01:54)
[2023-05-16] MEDS: LORazepam 2 MG TABLET PO PRN (03:45)
[2023-05-16] MEDS: OMEGA-3/DHA/EPA/FISH OIL 1,000 MG CAPSULE PO SCH (09:28)
[2023-05-16] MEDS: OLANZapine 5 MG TABLET PO SCH (09:28)
[2023-05-16 13:55] VITALS: RESP 18
[2023-05-16] MEDS: MAGNESIUM SULFATE 454 GM BAG TP SCH (18:37)
[2023-05-16 20:22] VITALS: BP 121/87; PULSE 90; RESP 19; TEMP 97.6; O2SAT 85
[2023-05-16] MEDS: MELATONIN 5 MG TABLET PO SCH (21:27)
[2023-05-16] MEDS: OLANZapine 7.5 MG TABLET PO SCH (21:27)
[2023-05-17] MEDS: HALOPERIDOL 5 MG TABLET PO PRN ×2 (01:28→08:36)
[2023-05-17] MEDS: OLANZapine 5 MG TABLET PO SCH (08:36)
[2023-05-17] MEDS: OMEGA-3/DHA/EPA/FISH OIL 1,000 MG CAPSULE PO SCH (08:36)
[2023-05-17] MEDS: LORazepam 2 MG TABLET PO PRN ×2 (08:36→18:16)
[2023-05-17 15:01] VITALS: BP 114/84; PULSE 85; RESP 18; TEMP 97.5; O2SAT 97
[2023-05-17] MEDS: MAGNESIUM SULFATE 454 GM BAG TP SCH (18:17)
[2023-05-17 20:34] VITALS: BP 130/86; PULSE 98; RESP 18; TEMP 97.6; O2SAT 98
[2023-05-17] MEDS: MELATONIN 5 MG TABLET PO SCH (21:06)
[2023-05-17] MEDS: OLANZapine 7.5 MG TABLET PO SCH (21:06)
[2023-05-18] MEDS: HALOPERIDOL 5 MG TABLET PO PRN ×2 (04:08→23:12)
[2023-05-18 08:29] VITALS: BP 140/86; PULSE 89; RESP 19; TEMP 97.8; O2SAT 100
[2023-05-18] MEDS: OLANZapine 5 MG TABLET PO SCH (09:53)
[2023-05-18] MEDS: OMEGA-3/DHA/EPA/FISH OIL 1,000 MG CAPSULE PO SCH (09:53)
[2023-05-18] MEDS: LORazepam 2 MG TABLET PO PRN ×2 (13:12→20:10)
[2023-05-18] MEDS: MAGNESIUM SULFATE 454 GM BAG TP SCH (18:42)
[2023-05-18] MEDS: MELATONIN 5 MG TABLET PO SCH (20:09)
[2023-05-18] MEDS: OLANZapine 7.5 MG TABLET PO SCH (20:09)
[2023-05-18 20:45] VITALS: BP 138/96; PULSE 99; RESP 17; TEMP 97.5; O2SAT 98
[2023-05-18] MEDS: GuaiFENesin/D-METHORPHAN [SUGAR-FREE] 200-20MG/10 ML SYRUP UDCUP PO PRN (22:58)
[2023-05-19] MEDS: OLANZapine 5 MG TABLET PO SCH (08:57)
[2023-05-19] MEDS: OMEGA-3/DHA/EPA/FISH OIL 1,000 MG CAPSULE PO SCH (08:57)
[2023-05-19] MEDS: LORazepam 2 MG TABLET PO PRN ×2 (08:57→20:21)
[2023-05-19 09:45] VITALS: BP 124/87; PULSE 78; RESP 20; TEMP 97; O2SAT 99
[2023-05-19] MEDS: HALOPERIDOL 5 MG TABLET PO PRN ×2 (12:10→20:21)
[2023-05-19] MEDS: MAGNESIUM SULFATE 454 GM BAG TP SCH (18:26)
[2023-05-19] MEDS: OLANZapine 7.5 MG TABLET PO SCH (20:19)
[2023-05-19] MEDS: MELATONIN 5 MG TABLET PO SCH (20:19)
[2023-05-19 20:34] VITALS: BP 132/84; PULSE 100; RESP 19; TEMP 98; O2SAT 98
[2023-05-19] MEDS: GuaiFENesin/D-METHORPHAN [SUGAR-FREE] 200-20MG/10 ML SYRUP UDCUP PO PRN (21:37)
[2023-05-20] MEDS: HALOPERIDOL 5 MG TABLET PO PRN ×2 (02:41→20:38)
[2023-05-20] MEDS: LORazepam 2 MG TABLET PO PRN ×2 (08:29→20:38)
[2023-05-20] MEDS: OMEGA-3/DHA/EPA/FISH OIL 1,000 MG CAPSULE PO SCH (08:29)
[2023-05-20] MEDS: OLANZapine 5 MG TABLET PO SCH (08:29)
[2023-05-20 08:32] VITALS: BP 138/72; PULSE 83; RESP 19; TEMP 97.5; O2SAT 98
[2023-05-20] MEDS: MAGNESIUM SULFATE 454 GM BAG TP SCH (17:35)
[2023-05-20] MEDS: OLANZapine 7.5 MG TABLET PO SCH (20:39)
[2023-05-20] MEDS: MELATONIN 5 MG TABLET PO SCH (20:39)
[2023-05-20 20:42] VITALS: BP 133/81; PULSE 89; RESP 18; TEMP 98.1; O2SAT 98
[2023-05-21 08:18] VITALS: BP 137/79; PULSE 80; RESP 19; TEMP 97.7; O2SAT 96
[2023-05-21] MEDS: OMEGA-3/DHA/EPA/FISH OIL 1,000 MG CAPSULE PO SCH (09:40)
[2023-05-21] MEDS: OLANZapine 5 MG TABLET PO SCH (09:41)
[2023-05-21] MEDS: MAGNESIUM SULFATE 454 GM BAG TP SCH (18:16)
[2023-05-21 20:29] VITALS: BP 137/94; PULSE 86; RESP 19; TEMP 98.3; O2SAT 96
[2023-05-21] MEDS: OLANZapine 7.5 MG TABLET PO SCH (20:43)
[2023-05-21] MEDS: MELATONIN 5 MG TABLET PO SCH (20:43)
[2023-05-21] MEDS: LORazepam 2 MG TABLET PO PRN (21:01)
[2023-05-21] MEDS: HALOPERIDOL 5 MG TABLET PO PRN (23:50)
[2023-05-22] MEDS: LORazepam 2 MG TABLET PO PRN ×2 (02:47→21:38)
[2023-05-22] MEDS: OLANZapine 5 MG TABLET PO SCH (08:32)
[2023-05-22] MEDS: OMEGA-3/DHA/EPA/FISH OIL 1,000 MG CAPSULE PO SCH (08:32)
[2023-05-22 08:35] VITALS: BP 141/96; PULSE 94; RESP 19; TEMP 97.9; O2SAT 97
[2023-05-22] MEDS: MAGNESIUM SULFATE 454 GM BAG TP SCH (18:23)
[2023-05-22] MEDS: OLANZapine 7.5 MG TABLET PO SCH (20:25)
[2023-05-22 20:32] VITALS: BP 135/97; PULSE 100; RESP 19; TEMP 98; O2SAT 94
[2023-05-22] MEDS: MELATONIN 5 MG TABLET PO SCH (21:21)
[2023-05-23] MEDS: HALOPERIDOL 5 MG TABLET PO PRN ×2 (00:34→22:09)
[2023-05-23] MEDS: GuaiFENesin/D-METHORPHAN [SUGAR-FREE] 200-20MG/10 ML SYRUP UDCUP PO PRN ×2 (00:34→22:09)
[2023-05-23 08:19] VITALS: RESP 18
[2023-05-23] MEDS: OLANZapine 5 MG TABLET PO SCH (09:46)
[2023-05-23] MEDS: OMEGA-3/DHA/EPA/FISH OIL 1,000 MG CAPSULE PO SCH (09:46)
[2023-05-23] MEDS: MAGNESIUM SULFATE 454 GM BAG TP SCH (18:22)
[2023-05-23] MEDS: OLANZapine 7.5 MG TABLET PO SCH (20:13)
[2023-05-23] MEDS: MELATONIN 5 MG TABLET PO SCH (20:13)
[2023-05-23 22:15] VITALS: BP 140/98; PULSE 100; RESP 19; TEMP 97.9; O2SAT 90
[2023-05-24] MEDS: ACETAMINOPHEN 325 MG TABLET PO PRN (01:46)
[2023-05-24] MEDS: HALOPERIDOL 5 MG TABLET PO PRN ×2 (05:52→20:54)
[2023-05-24 08:45] VITALS: BP 136/89; PULSE 100; RESP 19; TEMP 98.1; O2SAT 98
[2023-05-24] MEDS: OLANZapine 5 MG TABLET PO SCH (09:48)
[2023-05-24] MEDS: OMEGA-3/DHA/EPA/FISH OIL 1,000 MG CAPSULE PO SCH (09:48)
[2023-05-24] MEDS: MAGNESIUM SULFATE 454 GM BAG TP SCH (18:00)
[2023-05-24 20:32] VITALS: BP 145/99; PULSE 93; RESP 19; TEMP 97.8; O2SAT 96
[2023-05-24] MEDS: OLANZapine 7.5 MG TABLET PO SCH (20:54)
[2023-05-24] MEDS: MELATONIN 5 MG TABLET PO SCH (20:54)
[2023-05-25] MEDS: HALOPERIDOL 5 MG TABLET PO PRN ×2 (00:56→22:34)
[2023-05-25] MEDS: OLANZapine 5 MG TABLET PO SCH (09:45)
[2023-05-25] MEDS: OMEGA-3/DHA/EPA/FISH OIL 1,000 MG CAPSULE PO SCH (09:45)
[2023-05-25 10:52] VITALS: BP 116/87; PULSE 86; RESP 18; TEMP 98.6; O2SAT 98
[2023-05-25] MEDS: MAGNESIUM SULFATE 454 GM BAG TP SCH (18:00)
[2023-05-25 20:12] VITALS: BP 134/90; PULSE 91; RESP 18; TEMP 98.2; O2SAT 98
[2023-05-25] MEDS: MELATONIN 5 MG TABLET PO SCH (21:11)
[2023-05-25] MEDS: OLANZapine 7.5 MG TABLET PO SCH (21:11)
[2023-05-26] MEDS: LORazepam 2 MG TABLET PO PRN ×2 (00:26→21:57)
[2023-05-26 08:22] VITALS: BP 135/74; PULSE 89; RESP 19; TEMP 97.9; O2SAT 96
[2023-05-26] MEDS: OMEGA-3/DHA/EPA/FISH OIL 1,000 MG CAPSULE PO SCH (08:30)
[2023-05-26] MEDS: OLANZapine 5 MG TABLET PO SCH (08:30)
[2023-05-26] MEDS: MAGNESIUM SULFATE 454 GM BAG TP SCH (18:04)
[2023-05-26] MEDS: OLANZapine 7.5 MG TABLET PO SCH (20:15)
[2023-05-26] MEDS: MELATONIN 5 MG TABLET PO SCH (20:15)
[2023-05-26 20:42] VITALS: BP 121/91; PULSE 96; RESP 19; TEMP 98.2; O2SAT 95
[2023-05-26] MEDS: HALOPERIDOL 5 MG TABLET PO PRN (21:58)
[2023-05-27] MEDS: ACETAMINOPHEN 325 MG TABLET PO PRN (03:02)
[2023-05-27 08:25] VITALS: BP 109/86; PULSE 75; RESP 18; TEMP 97.9; O2SAT 100
[2023-05-27] MEDS: OLANZapine 5 MG TABLET PO SCH (09:27)
[2023-05-27] MEDS: OMEGA-3/DHA/EPA/FISH OIL 1,000 MG CAPSULE PO SCH (09:27)
[2023-05-27] MEDS: MAGNESIUM SULFATE 454 GM BAG TP SCH (18:00)
[2023-05-27 20:28] VITALS: BP 134/98; PULSE 91; RESP 18; TEMP 97.9; O2SAT 95
[2023-05-27] MEDS: OLANZapine 7.5 MG TABLET PO SCH (20:33)
[2023-05-27] MEDS: MELATONIN 5 MG TABLET PO SCH (20:36)
[2023-05-27] MEDS: HALOPERIDOL 5 MG TABLET PO PRN (22:41)
[2023-05-27] MEDS: LORazepam 2 MG TABLET PO PRN (22:41)
[2023-05-28] VITALS (7 sets, daily range): BP systolic 128–145; BP diastolic 83–89; PULSE 87–94; RESP 16–18; TEMP 97.8–97.9; O2SAT 95
[2023-05-28] MEDS: ACETAMINOPHEN 325 MG TABLET PO PRN (00:33)
[2023-05-28] MEDS: IBUPROFEN 400 MG TABLET PO PRN (04:50)
[2023-05-28] MEDS: OMEGA-3/DHA/EPA/FISH OIL 1,000 MG CAPSULE PO SCH (09:41)
[2023-05-28] MEDS: OLANZapine 5 MG TABLET PO SCH (09:41)
[2023-05-28] MEDS: MAGNESIUM SULFATE 454 GM BAG TP SCH (18:04)
[2023-05-28] MEDS: LORazepam 2 MG TABLET PO PRN (21:39)
[2023-05-28] MEDS: OLANZapine 7.5 MG TABLET PO SCH (21:39)
[2023-05-28] MEDS: HALOPERIDOL 5 MG TABLET PO PRN (21:39)
[2023-05-28] MEDS: MELATONIN 5 MG TABLET PO SCH (21:39)
[2023-05-29 08:21] VITALS: BP 138/78; PULSE 86; RESP 17; TEMP 98.5; O2SAT 99
[2023-05-29] MEDS: OMEGA-3/DHA/EPA/FISH OIL 1,000 MG CAPSULE PO SCH (09:00)
[2023-05-29] MEDS: OLANZapine 5 MG TABLET PO SCH (09:00)
[2023-05-29] MEDS: MAGNESIUM SULFATE 454 GM BAG TP SCH (17:24)
[2023-05-29 20:34] VITALS: BP 148/98; PULSE 81; RESP 19; TEMP 97.8; O2SAT 94
[2023-05-29] MEDS: LORazepam 2 MG TABLET PO PRN (21:57)
[2023-05-29] MEDS: OLANZapine 7.5 MG TABLET PO SCH (21:57)
[2023-05-29] MEDS: MELATONIN 5 MG TABLET PO SCH (21:58)
[2023-05-30 02:33] VITALS: BP 138/97; PULSE 87; RESP 18; TEMP 97.7; O2SAT 95
[2023-05-30] MEDS: HALOPERIDOL 5 MG TABLET PO PRN (02:35)
[2023-05-30 08:42] VITALS: BP 144/90; PULSE 89; RESP 18; TEMP 97.2; O2SAT 97
[2023-05-30] MEDS: OLANZapine 5 MG TABLET PO SCH (08:54)
[2023-05-30] MEDS: OMEGA-3/DHA/EPA/FISH OIL 1,000 MG CAPSULE PO SCH (08:55)
[2023-05-30] MEDS: MAGNESIUM SULFATE 454 GM BAG TP SCH (18:00)
[2023-05-30 20:50] VITALS: BP 135/85; PULSE 71; RESP 18; TEMP 98; O2SAT 97
[2023-05-30] MEDS: MELATONIN 5 MG TABLET PO SCH (21:00)
[2023-05-30] MEDS: OLANZapine 7.5 MG TABLET PO SCH (21:00)
[2023-05-30] MEDS: LORazepam 2 MG TABLET PO PRN (22:11)
[2023-05-31] MEDS: LORazepam 2 MG TABLET PO PRN ×2 (08:36→20:21)
[2023-05-31 08:37] VITALS: BP 132/85; PULSE 90; RESP 19; TEMP 98; O2SAT 95
[2023-05-31] MEDS: OMEGA-3/DHA/EPA/FISH OIL 1,000 MG CAPSULE PO SCH (08:37)
[2023-05-31] MEDS: OLANZapine 5 MG TABLET PO SCH (08:37)
[2023-05-31 10:05] LABS: EOSINOPHILS % (AUTO) 5.2 % (1.0-6.0); HEMATOCRIT 43.5 % (41-53); HEMOGLOBIN 14.8 g/dL (13.5-17.5); LYMPHOCYTES # (AUTO) 1.5 K/uL (1.0-4.8); LYMPHOCYTES % (AUTO) 29.1 % (22.0-44.0); MEAN CORPUSCULAR HGB CONC 34.1 G/dL (31.0-37.0); MEAN CORPUSCULAR VOLUME 97 fL (80-100); MONOCYTES # (AUTO) 0.6 K/uL (0.1-1.0); MONOCYTES % (AUTO) 12.1 % (2.0-9.0); NEUTROPHILS # (AUTO) 2.6 K/uL (1.8-7.7); NEUTROPHILS % (AUTO) 51.6 % (40.0-70.0); PLATELET COUNT (AUTO) 250 K/uL (150-450); RED CELL DISTRIBUTION WIDTH 13.3 % (11.5-14.5); WHITE BLOOD COUNT (AUTO) 5.1 K/uL (4.5-11.0)
[2023-05-31 10:22] LABS: ALANINE AMINOTRANSFERASE 67 U/L (12-78); ALBUMIN 3.4 g/dL (3.4-5.0); ALKALINE PHOSPHATASE 68 U/L (46-116); ANION GAP 12 mmol/L (8-16); ASPARTATE AMINOTRANSFERASE 39 U/L (15-37); BILIRUBIN,TOTAL 0.3 mg/dL (0.1-1.0); CALCIUM, TOTAL 8.5 mg/dL (8.8-10.5); CARBON DIOXIDE 26 mmol/L (22-29); CHLORIDE 104 mmol/L (98-107); CREATININE 0.97 mg/dL (0.60-1.30); GLOMERULAR FILTR. RATE CALC > 60 mL/min (>60); GLUCOSE,RANDOM 186 mg/dL (70-110); POTASSIUM 3.5 mmol/L (3.5-5.1); SODIUM SERUM 142 mmol/L (136-145); TOTAL PROTEIN, SERUM 6.5 g/dL (6.4-8.2); UREA NITROGEN, BLOOD 16 mg/dL (7-18)
[2023-05-31] MEDS: MAGNESIUM SULFATE 454 GM BAG TP SCH (18:53)
[2023-05-31 20:00] VITALS: BP 131/94; PULSE 96; RESP 18; TEMP 97.7; O2SAT 95
[2023-05-31] MEDS: MELATONIN 5 MG TABLET PO SCH (20:21)
[2023-05-31] MEDS: OLANZapine 7.5 MG TABLET PO SCH (20:21)
[2023-06-01] MEDS: LORazepam 2 MG TABLET PO PRN ×2 (00:26→20:40)
[2023-06-01] MEDS: GuaiFENesin/D-METHORPHAN [SUGAR-FREE] 200-20MG/10 ML SYRUP UDCUP PO PRN (04:01)
[2023-06-01 05:14] VITALS: BP 131/100; PULSE 96; RESP 18; TEMP 97.7; O2SAT 98
[2023-06-01] MEDS: ACETAMINOPHEN 325 MG TABLET PO PRN (05:17)
[2023-06-01 06:38] VITALS: BP 148/94; PULSE 91; RESP 18
[2023-06-01 08:35] VITALS: BP 132/85; PULSE 82; RESP 19; TEMP 98.2; O2SAT 96
[2023-06-01] MEDS: OMEGA-3/DHA/EPA/FISH OIL 1,000 MG CAPSULE PO SCH (08:49)
[2023-06-01] MEDS: OLANZapine 5 MG TABLET PO SCH (08:49)
[2023-06-01] MEDS: MAGNESIUM SULFATE 454 GM BAG TP SCH (16:08)
[2023-06-01 21:18] VITALS: BP 121/74; PULSE 86; RESP 19; TEMP 97.7; O2SAT 91
[2023-06-01] MEDS: MELATONIN 5 MG TABLET PO SCH (21:28)
[2023-06-01] MEDS: OLANZapine 7.5 MG TABLET PO SCH (21:29)
[2023-06-02] MEDS: ACETAMINOPHEN 325 MG TABLET PO PRN (00:54)
[2023-06-02] MEDS: OMEGA-3/DHA/EPA/FISH OIL 1,000 MG CAPSULE PO SCH (08:12)
[2023-06-02] MEDS: OLANZapine 5 MG TABLET PO SCH (08:13)
[2023-06-02] MEDS: MAGNESIUM SULFATE 454 GM BAG TP SCH ×2 (17:23→19:38)
[2023-06-02] MEDS ORDERED: MELA5TAB12 PO (19:44)
[2023-06-02] MEDS ORDERED: OMEG-136 PO (19:47)
[2023-06-02 20:12] VITALS: BP 138/79; PULSE 101; RESP 18; TEMP 97.9; O2SAT 98
[2023-06-02] MEDS: MELATONIN 5 MG TABLET PO SCH (20:46)
[2023-06-02] MEDS: OLANZapine 7.5 MG TABLET PO SCH (20:46)
[2023-06-03] MEDS: OLANZapine 5 MG TABLET PO SCH (08:37)
[2023-06-03] MEDS: OMEGA-3/DHA/EPA/FISH OIL 1,000 MG CAPSULE PO SCH (08:37)
[2023-06-03 08:38] VITALS: BP 135/81; PULSE 68; RESP 18; TEMP 98; O2SAT 97
[2023-06-03 11:01] LABS: GLUCOMETER DEV NAME(LOC) POC.BV; POC SARS-COV2 AG, FIA NEGATIVE (NEGATIVE)
== END 2023-06-03 12:42 | DRG 750 ==
LOC: EMS 20:34 → B3A 23:20 → B2S 03-26 15:23
PROVIDERS: ADMIT Psychiatry & Neurology Psychiatry; ATTEND Psychiatry & Neurology Psychiatry
DX: F20.0 Paranoid schizophrenia (principal); Z91.199 Patient's noncompliance with other medical treatment and regimen due to unspecified reason; E87.6 Hypokalemia; F17.200 Nicotine dependence, unspecified, uncomplicated; N18.9 Chronic kidney disease, unspecified; Z20.822 Contact with and (suspected) exposure to COVID-19; F99 Mental disorder, not otherwise specified; Z59.00 Homelessness unspecified
CPT/HCPCS: 80053; 80061; 80307; 83036; 84443; 85025; 87081; 99285; G0480; Q9967